=== PATIENT | male | born 1950 | race Caucasian/White ===

== ENCOUNTER → 2017-05-20 12:04 | Outpatient (CLI) | payer MEDICARE, SELFPAY ==
[2017-05-20 14:23] LABS: Color, Urine Yellow (Yellow); Glucose, Dipstick Normal (Normal); Ketone-Dipstick Negative (Negative); Leukocyte Esterase-Dipstick Negative /ul (Negative); Nitrite-Dipstick Negative (Negative); Occult Blood-Urine Negative /ul (Negative); Protein-Dipstick Negative (Negative); Specific Gravity, Urine 1.015 (1.002-1.030); Urine Bilirubin Dipstick Negative (Negative); Urine Clarity Clear (Clear); Urine Urobilinogen Normal (Normal)
[2017-05-20 14:29] LABS: Absolute Lymphocyte Count 1.81 X10^3/ul (0.83-4.51); Absolute Neutrophil Count 5.7 X10^3/uL (2.0-7.7); Basophil# 0.04 X10^3/uL; Basophil% 0.5 % (0-1); Eosinophil# 0.07 X10^3/uL; Eosinophils% 0.8 % (0-5); Hematocrit 43.5 % (40-54); Hemoglobin 14.7 g/dl (13.0-16.5); Lymphocyte # 1.81 X10^3/ul (4.0); Lymphocyte % 21.4 % (19-41); Mean Corp Hgb Conc 33.8 g/gl (32-36); Mean Corpuscular Hgb 34.5 pg (27.0-32.0); Mean Corpuscular Volume 102.1 fL (80-94); Mean Platelet Vol. 9.8 fl (6.2-12.0); Monocyte# 0.76 X10^3/uL; Neutrophil # 5.71 X10^3/uL (2.7-7.7); Neutrophil % 67.7 % (47-70); Platelet Count 254 K/mm3 (150-450); RBC Distribution Width CV 12.6 % (11.6-14.6); RBC Distribution Width SD 46.6 fl (35.1-43.9); Red Blood Count 4.26 M/mm3 (4.6-6.2); White Blood Count 8.4 K/mm3 (4.4-11.0)
[2017-05-20 14:30] LABS: POSITIVE COUNT NO; POSITIVE DIFFERENTIAL NO; POSITIVE MORPHOLOGY NO
[2017-05-20 14:35] LABS: AST(SGOT) 30 U/L (15-37); Alanine Aminotransfer ALT/SGPT 40 U/L (16-61); Albumin, Serum 3.6 g/dL (3.2-5.0); Alkaline Phosphatase 64 U/L (45-117); Anion Gap 7 (5-15); BUN 25 mg/dL (7-18); BUN/Creat Ratio 21.9 RATIO (10-20); Calcium,Total 9.6 mg/dL (8.5-10.1); Chloride 102 mmol/L (98-107); Cholesterol 151 mg/dL (200); Creatinine, Serum 1.14 mg/dL (0.70-1.30); EST Glomerular Filtration Rate 68 mL/min (>60); Est Glom Filt Rate - Afr Amer 83 mL/min (>60); Globulin 3.7 g/dL (2.2-4.2); Glucose 107 mg/dL (74-106); High Density Lipoprotein 42 mg/dL; PSA,Total - Annual Screen 0.98 ng/mL (0.00-4.00); Potassium 4.3 mmol/L (3.5-5.1); Protein, Total 7.3 g/dL (6.4-8.2); Sodium Level 139 mmol/L (136-145); Triglycerides 189 mg/dL; Very Low Density Lipoprotein 38 mg/dL (5-40)
== END ==
DX: Z00.00 Encounter for general adult medical examination without abnormal findings (principal); I10 Essential (primary) hypertension; E78.00 Pure hypercholesterolemia, unspecified; E53.8 Deficiency of other specified B group vitamins; Z12.5 Encounter for screening for malignant neoplasm of prostate
CPT/HCPCS: 36415; 80053; 80061; 81002; 84153; 85025; G0103

== ENCOUNTER → 2018-05-27 10:16 | Outpatient (CLI) | payer MEDICARE, SELFPAY ==
[2018-05-27 12:36] LABS: Absolute Lymphocyte Count 2.05 X10^3/ul (0.83-4.51); Absolute Neutrophil Count 4.1 X10^3/uL (2.0-7.7); Basophil# 0.02 X10^3/uL; Basophil% 0.3 % (0-1); Color, Urine Yellow (Yellow); Eosinophil# 0.13 X10^3/uL; Eosinophils% 1.9 % (0-5); Glucose, Dipstick Normal (Normal); Hematocrit 44.9 % (40-54); Hemoglobin 14.7 g/dl (13.0-16.5); Ketone-Dipstick Negative (Negative); Leukocyte Esterase-Dipstick Negative /ul (Negative); Lymphocyte # 2.05 X10^3/ul (4.0); Lymphocyte % 29.6 % (19-41); Mean Corp Hgb Conc 32.7 g/gl (32-36); Mean Corpuscular Hgb 32.6 pg (27.0-32.0); Mean Corpuscular Volume 99.6 fL (80-94); Mean Platelet Vol. 10.4 fl (6.2-12.0); Monocyte# 0.62 X10^3/uL; Monocyte% 8.9 % (0-10); Neutrophil # 4.09 X10^3/uL (2.7-7.7); Nitrite-Dipstick Negative (Negative); Occult Blood-Urine Negative /ul (Negative); Platelet Count 291 K/mm3 (150-450); Protein-Dipstick Negative (Negative); RBC Distribution Width CV 12.5 % (11.6-14.6); RBC Distribution Width SD 46.1 fl (35.1-43.9); Red Blood Count 4.51 M/mm3 (4.6-6.2); Specific Gravity, Urine 1.015 (1.002-1.030); Urine Bilirubin Dipstick Negative (Negative); Urine Clarity Clear (Clear); Urine Urobilinogen Normal (Normal); Urine pH 6.5 (5.0 - 8.0); White Blood Count 6.9 K/mm3 (4.4-11.0)
[2018-05-27 12:37] LABS: POSITIVE COUNT NO; POSITIVE DIFFERENTIAL NO; POSITIVE MORPHOLOGY NO
[2018-05-27 13:11] LABS: ALB/GLOB Ratio 0.9 RATIO (0.9-2.4); AST(SGOT) 21 U/L (15-37); Alanine Aminotransfer ALT/SGPT 33 U/L (16-61); Albumin, Serum 3.6 g/dL (3.2-5.0); Alkaline Phosphatase 52 U/L (45-117); Anion Gap 5 (5-15); BUN 19 mg/dL (7-18); BUN/Creat Ratio 18.1 RATIO (10-20); Calcium,Total 9.2 mg/dL (8.5-10.1); Chloride 104 mmol/L (98-107); Cholesterol 155 mg/dL (200); Creatinine, Serum 1.05 mg/dL (0.70-1.30); EST Glomerular Filtration Rate 75 mL/min (>60); Est Glom Filt Rate - Afr Amer 91 mL/min (>60); Glucose 118 mg/dL (74-106); High Density Lipoprotein 30 mg/dL; Potassium 3.9 mmol/L (3.5-5.1); Protein, Total 7.6 g/dL (6.4-8.2); Sodium Level 136 mmol/L (136-145); Triglycerides 168 mg/dL; Very Low Density Lipoprotein 34 mg/dL (5-40)
== END ==
PROVIDERS: Referring Provider Family Medicine; Visit Provider Family Medicine
DX: Z00.00 Encounter for general adult medical examination without abnormal findings (principal); Z12.5 Encounter for screening for malignant neoplasm of prostate
CPT/HCPCS: 36415; 80053; 80061; 81002; 84153; 85025; G0103

== ENCOUNTER → 2019-07-10 11:52 | Outpatient (CLI) | payer MEDICARE, SELFPAY ==
[2019-07-10 14:52] LABS: Absolute Lymphocyte Count 2.23 X10^3/uL (0.83-4.51); Absolute Neutrophil Count 3.9 X10^3/uL (2.0-7.7); Basophil# 0.03 X10^3/uL; Basophil% 0.4 % (0-1); Eosinophil# 0.08 X10^3/uL; Eosinophils% 1.2 % (0-5); Hematocrit 41.8 % (40-54); Hemoglobin 13.7 g/dL (13.0-16.5); Lymphocyte # 2.23 X10^3/ul (4.0); Lymphocyte % 32.3 % (19-41); Mean Corp Hgb Conc 32.8 g/dL (32-36); Mean Corpuscular Hgb 32.2 pg (27.0-32.0); Mean Corpuscular Volume 98.4 fL (80-94); Monocyte# 0.62 X10^3/uL; NRBC Flagged by Analyzer 0 % (0-5); Neutrophil # 3.92 X10^3/uL (2.7-7.7); Neutrophil % 56.8 % (47-70); Platelet Count 291 K/mm3 (150-450); RBC Distribution Width SD 46.5 fl (35.1-43.9); Red Blood Count 4.25 M/mm3 (4.6-6.2); White Blood Count 6.9 K/mm3 (4.4-11.0)
[2019-07-10 15:06] LABS: Hemoglobin A1c 7.1 % (4.2-6.3)
[2019-07-10 15:08] LABS: ALB/GLOB Ratio 0.9 RATIO (0.9-2.4); AST(SGOT) 20 U/L (15-37); Alanine Aminotransfer ALT/SGPT 30 U/L (16-61); Albumin, Serum 3.6 g/dL (3.2-5.0); Alkaline Phosphatase 52 U/L (45-117); Anion Gap 5 (5-15); BUN 34 mg/dL (7-18); BUN/Creat Ratio 26.4 RATIO (10-20); Calcium,Total 9.7 mg/dL (8.5-10.1); Chloride 105 mmol/L (98-107); Creatinine, Serum 1.29 mg/dL (0.70-1.30); EST Glomerular Filtration Rate 59 mL/min (>60); Est Glom Filt Rate - Afr Amer 71 mL/min (>60); Globulin 3.8 g/dL (2.2-4.2); Glucose 108 mg/dL (74-106); Potassium 4.2 mmol/L (3.5-5.1); Protein, Total 7.4 g/dL (6.4-8.2); Sodium Level 139 mmol/L (136-145)
== END ==
PROVIDERS: PCP Family Medicine; Referring Provider Family Medicine; Visit Provider Family Medicine
DX: E78.5 Hyperlipidemia, unspecified (principal); I10 Essential (primary) hypertension; R73.01 Impaired fasting glucose
CPT/HCPCS: 36415; 80053; 83036; 85025

== ENCOUNTER → 2020-01-10 10:25 | Outpatient (CLI) | payer MEDICARE, SELFPAY ==
[2020-01-10 12:12] LABS: Absolute Lymphocyte Count 2.71 X10^3/uL (0.83-4.51); Absolute Neutrophil Count 4.5 X10^3/uL (2.0-7.7); Basophil# 0.04 X10^3/uL; Basophil% 0.5 % (0-1); Eosinophil# 0.12 X10^3/uL; Eosinophils% 1.5 % (0-5); Hematocrit 42.5 % (40-54); Hemoglobin 13.7 g/dL (13.0-16.5); Lymphocyte # 2.71 X10^3/ul (4.0); Lymphocyte % 33.5 % (19-41); Mean Corp Hgb Conc 32.2 g/dL (32-36); Mean Corpuscular Hgb 32.4 pg (27.0-32.0); Mean Corpuscular Volume 100.5 fL (80-94); Mean Platelet Vol. 9.9 fl (6.2-12.0); Monocyte# 0.69 X10^3/uL; Monocyte% 8.5 % (0-10); NRBC Flagged by Analyzer 0 % (0-5); Neutrophil # 4.49 X10^3/uL (2.7-7.7); Neutrophil % 55.4 % (47-70); Platelet Count 341 K/mm3 (150-450); RBC Distribution Width SD 47.9 fl (35.1-43.9); Red Blood Count 4.23 M/mm3 (4.6-6.2); White Blood Count 8.1 K/mm3 (4.4-11.0)
[2020-01-10 12:54] LABS: ALB/GLOB Ratio 0.9 RATIO (0.9-2.4); AST(SGOT) 22 U/L (15-37); Alanine Aminotransfer ALT/SGPT 35 U/L (16-61); Albumin, Serum 3.8 g/dL (3.2-5.0); Alkaline Phosphatase 53 U/L (45-117); Anion Gap 5 (5-15); BUN 41 mg/dL (7-18); BUN/Creat Ratio 29.7 RATIO (10-20); Calcium,Total 9.4 mg/dL (8.5-10.1); Chloride 106 mmol/L (98-107); Cholesterol 131 mg/dL (200); Creatinine, Serum 1.38 mg/dL (0.70-1.30); EST Glomerular Filtration Rate 54 mL/min (>60); Est Glom Filt Rate - Afr Amer 66 mL/min (>60); Globulin 4.1 g/dL (2.2-4.2); Glucose 97 mg/dL (74-106); High Density Lipoprotein 30 mg/dL; Potassium 4.6 mmol/L (3.5-5.1); Protein, Total 7.9 g/dL (6.4-8.2); Sodium Level 139 mmol/L (136-145); Triglycerides 156 mg/dL; Very Low Density Lipoprotein 31 mg/dL (5-40)
[2020-01-10 13:14] LABS: Microalbumin,Random Urine 22.4 mg/L (NO RANGE EST.)
== END ==
PROVIDERS: PCP Family Medicine; Referring Provider Family Medicine; Visit Provider Family Medicine
DX: E11.9 Type 2 diabetes mellitus without complications (principal); I10 Essential (primary) hypertension
CPT/HCPCS: 36415; 80053; 80061; 82043; 82570; 85025

== ENCOUNTER 2020-05-09 07:41 | Outpatient (RCR) | payer MEDICARE, SELFPAY ==
[2020-05-09] MEDS: COVID-19 VACC, MRNA(PFIZER)/PF 30 MCG/0.3 ML SYRINGE IM (15:23)
[2020-05-30] MEDS: COVID-19 VACC, MRNA(PFIZER)/PF 30 MCG/0.3 ML SYRINGE IM (15:03)
== END 2020-08-06 23:59 ==
LOC: IMMUN 07:41
PROVIDERS: PCP Family Medicine; Referring Provider Family Medicine; Visit Provider Family Medicine
DX: Z23 Encounter for immunization (principal)
CPT/HCPCS: 0001A; 0002A; 91300

== ENCOUNTER → 2020-09-24 13:38 | Outpatient (CLI) | payer MEDICARE, SELFPAY ==
[2020-09-24 15:06] LABS: Absolute Lymphocyte Count 2.57 X10^3/uL (0.83-4.51); Absolute Neutrophil Count 4.2 X10^3/uL (2.0-7.7); Basophil# 0.05 X10^3/uL; Basophil% 0.6 % (0-1); Eosinophil# 0.14 X10^3/uL; Eosinophils% 1.8 % (0-5); Hematocrit 38.5 % (40-54); Hemoglobin 12.4 g/dL (13.0-16.5); Lymphocyte # 2.57 X10^3/ul (0.83-4.51); Lymphocyte % 32.4 % (19-41); Mean Corp Hgb Conc 32.2 g/dL (32-36); Mean Corpuscular Hgb 32.1 pg (27.0-32.0); Mean Corpuscular Volume 99.7 fL (80-94); Mean Platelet Vol. 9.7 fl (6.2-12.0); Monocyte# 0.94 X10^3/uL; Monocyte% 11.8 % (0-10); NRBC Flagged by Analyzer 0 % (0-5); Neutrophil # 4.17 X10^3/uL (2.7-7.7); Neutrophil % 52.5 % (47-70); Platelet Count 318 K/mm3 (150-450); RBC Distribution Width CV 12.9 % (11.6-14.6); RBC Distribution Width SD 47.3 fl (35.1-43.9); Red Blood Count 3.86 M/mm3 (4.6-6.2); White Blood Count 7.9 K/mm3 (4.4-11.0)
[2020-09-24 15:46] LABS: ALB/GLOB Ratio 0.9 RATIO (0.9-2.4); AST(SGOT) 20 U/L (15-37); Alanine Aminotransfer ALT/SGPT 28 U/L (16-61); Albumin, Serum 3.7 g/dL (3.2-5.0); Alkaline Phosphatase 46 U/L (45-117); Anion Gap 6 (5-15); BUN 74 mg/dL (7-18); BUN/Creat Ratio 28.4 RATIO (10-20); Calcium,Total 9.1 mg/dL (8.5-10.1); Chloride 104 mmol/L (98-107); Creatinine, Serum 2.61 mg/dL (0.70-1.30); EST Glomerular Filtration Rate 26 mL/min (>60); Est Glom Filt Rate - Afr Amer 31 mL/min (>60); Glucose 108 mg/dL (74-106); Protein, Total 7.7 g/dL (6.4-8.2); Sodium Level 138 mmol/L (136-145)
== END ==
PROVIDERS: PCP Family Medicine; Referring Provider Family Medicine; Visit Provider Family Medicine
DX: Z00.01 Encounter for general adult medical examination with abnormal findings (principal); Z12.5 Encounter for screening for malignant neoplasm of prostate
CPT/HCPCS: 36415; 80053; 84153; 85025; G0103

== ENCOUNTER → 2020-10-02 15:10 | Outpatient (CLI) | payer MEDICARE, SELFPAY ==
--- NOTE | 2020-10-02 15:15 | US_ITS ---
STUDY: RENAL ULTRASOUND - COMPLETE REASON FOR EXAM: Male, 70 years old. Change in renal function. Decreased renal function. TECHNIQUE: Ultrasound evaluation of the kidneys was performed with real-time and static gordon-scale imaging. COMPARISON: None. FINDINGS: RIGHT KIDNEY: Normal location of the right kidney, which is normal in size. The right kidney measures 11.3 cm. There is a normal cortex of the right kidney. The renal cortex measures 1.3 cm. There is no right renal mass or cyst. There are no right renal calculi. There is no right hydronephrosis. DISTAL RIGHT URETER: There is non-visualization of the distal right ureter. There is no demonstrated right ureterovesical junction calculus. There is a visualized right ureteral jet. LEFT KIDNEY: Normal location of the left kidney, which is enlarged in size. The left kidney measures 13.2 cm. There is a normal cortex of the left kidney. The renal cortex measures 1.5 cm. There is no left renal mass or cyst. There are no left renal calculi. There is no left hydronephrosis. DISTAL LEFT URETER: There is non-visualization of the distal left ureter. There is no demonstrated left ureterovesical junction calculus. There is a visualized left ureteral jet. BLADDER: The distended urinary bladder has a volume of 118 ml. There is a normal wall thickness of the distended urinary bladder. There is no demonstrated mass within the urinary bladder. There are no demonstrated bladder calculi. US/Kidney and Bladder IMPRESSION: Normal ultrasound of the kidneys and urinary bladder. Electronically Signed: Wesley Pool DO at 16:09 EDT Tel [phone], Service support ,
[2020-10-02 17:06] LABS: Protein, Urine (Random) 9.1 mg/dL (<11.9); Protein:Creat Ratio 77 mg/g CRE (0-200)
== END ==
PROVIDERS: PCP Family Medicine; Referring Provider Family Medicine; Visit Provider Family Medicine
DX: N18.30 Chronic kidney disease, stage 3 unspecified (principal)
CPT/HCPCS: 76770; 82570; 84156

== ENCOUNTER → 2020-10-22 14:34 | Outpatient (CLI) | payer MEDICARE, SELFPAY ==
[2020-10-22 17:39] LABS: Absolute Lymphocyte Count 2.18 X10^3/uL (0.83-4.51); Absolute Neutrophil Count 3.7 X10^3/uL (2.0-7.7); Basophil# 0.03 X10^3/uL; Basophil% 0.4 % (0-1); Eosinophil# 0.09 X10^3/uL; Eosinophils% 1.3 % (0-5); Hematocrit 38.8 % (40-54); Hemoglobin 12.1 g/dL (13.0-16.5); Lymphocyte # 2.18 X10^3/ul (0.83-4.51); Lymphocyte % 32.3 % (19-41); Mean Corp Hgb Conc 31.2 g/dL (32-36); Mean Corpuscular Hgb 31.5 pg (27.0-32.0); Mean Platelet Vol. 10.6 fl (6.2-12.0); Monocyte# 0.72 X10^3/uL; Monocyte% 10.7 % (0-10); NRBC Flagged by Analyzer 0 % (0-5); Neutrophil # 3.68 X10^3/uL (2.7-7.7); Neutrophil % 54.7 % (47-70); Platelet Count 305 K/mm3 (150-450); RBC Distribution Width CV 13.6 % (11.6-14.6); RBC Distribution Width SD 50.3 fl (35.1-43.9); Red Blood Count 3.84 M/mm3 (4.6-6.2); White Blood Count 6.7 K/mm3 (4.4-11.0)
[2020-10-22 18:10] LABS: Vitamin D,25 Hydroxy 25.8 ng/mL
[2020-10-22 18:13] LABS: AST(SGOT) 22 U/L (15-37); Alanine Aminotransfer ALT/SGPT 36 U/L (16-61); Albumin, Serum 3.6 g/dL (3.2-5.0); Alkaline Phosphatase 48 U/L (45-117); Anion Gap 4 (5-15); BUN 31 mg/dL (7-18); BUN/Creat Ratio 23.7 RATIO (10-20); Calcium,Total 9.4 mg/dL (8.5-10.1); Chloride 107 mmol/L (98-107); Creatinine, Serum 1.31 mg/dL (0.70-1.30); EST Glomerular Filtration Rate 58 mL/min (>60); Est Glom Filt Rate - Afr Amer 70 mL/min (>60); Globulin 3.7 g/dL (2.2-4.2); Glucose 90 mg/dL (74-106); Potassium 4.4 mmol/L (3.5-5.1); Protein, Total 7.3 g/dL (6.4-8.2); Sodium Level 138 mmol/L (136-145)
[2020-10-23 09:29] LABS: PTHIN 8.5 pg/mL (18.4-80.1)
[2020-10-23 14:46] LABS: Vitamin B12 1115 pg/mL (211-911)
== END ==
PROVIDERS: PCP Family Medicine; Referring Provider Family Medicine; Visit Provider Family Medicine
DX: N18.30 Chronic kidney disease, stage 3 unspecified (principal); D64.9 Anemia, unspecified
CPT/HCPCS: 36415; 80053; 82306; 82607; 83970; 85025

== ENCOUNTER 2020-11-25 12:25 | Emergency (ER) | payer MEDICARE, SELFPAY ==
[2020-11-25 12:26] VITALS: BP 206/78; PULSE 76; RESP 16; TEMP 36.1; O2SAT 96; BMI 31.6
[2020-11-25 14:33] VITALS: BP 203/83; PULSE 62; RESP 20; O2SAT 96
--- NOTE | 2020-11-25 14:58 | CT_ITS ---
STUDY: CT BRAIN WITHOUT CONTRAST REASON FOR EXAM: Male, 70 years old. Headache. Hypertension. RADIATION DOSAGE (If Supplied By Facility): CTDIvol = ( 44.99 ) mGy, DLP = ( 745.49 ) mGycm TECHNIQUE: Transaxial CT imaging of the brain was performed without administration of intravenous contrast material. Individualized dose optimization techniques were used for this CT. COMPARISON: No relevant priors. FINDINGS: Normal soft tissue structures. Normal calvarium. Normal size ventricles and extra-axial spaces for the patient''s age. There is a 2 cm x 2 cm rounded hypodensity in the posterior left occipital lobe. Mild degree of surrounding edema. A repeat examination following IV contrast is recommended. Normal basal ganglia and thalami. Normal brainstem. Normal cerebellum. There is no intracranial hemorrhage. There are no findings of an acute ischemic infarction. Normal visualized paranasal sinuses. CT/Brain/Head without Contrast IMPRESSION: 2 cm x 2 cm rounded hypodensity in the posterior left occipital lobe as described. A repeat examination following IV contrast or MRI is recommended for further evaluation. This extends to the cortical surface. Electronically Signed: Pelon Ramon MD at 15:31 EDT , Service support ,
--- NOTE | 2020-11-25 14:59 | EKG12_ITS ---
Test Reason : HTN Blood Pressure : / mmHG Vent. Rate : 058 BPM Atrial Rate : 058 BPM P-R Int : 172 ms QRS Dur : 086 ms QT Int : 448 ms P-R-T Axes : 002 014 050 degrees QTc Int : 439 ms Sinus bradycardia Manjeet- Septal infarct , age undetermined Abnormal ECG Confirmed by TACO FLORES, SPARKLE ([id number]), book editor LISA ROBLEDO ([id number]) on 11/27/2020 11:24:58 AM Referred By: GRACE Confirmed By:SPARKLE ESPAÑA MD
--- NOTE | 2020-11-25 14:59 | EDS_ITS ---
HPI History of Present Illness Chief Complaint: Hypertension Narrative Narrative: 60-year-old male presenting with elevated blood pressure. Patient states that he was on losartan hydrochlorothiazide previously about a month ago. He was seen for a routine appointment at his doctor's office and he states that he was told that his white blood cell count was low. He was sent to hospital for an ultrasound of his kidneys which was normal. His medication was changed to metoprolol succinate 25 mg orally daily. Patient is also on amlodipine 5 mg p.o. daily. He notes that he has been having a slight headache without visual disturbance. He states he sometimes feels a little dizzy. He has not had nausea or vomiting. Patient states that he also has lower extremity edema in his feet bilaterally. He is short of breath with exertion and can walk only short distances. He does not have any chest pain. He denies any cardiac history. He denies fever, chills, cough. [facility] Medical History Hyperlipemia Hypertension Home Medications amlodipine 5 mg PO DAILY 11/25/20 [History Last Taken Unknown] amlodipine [Norvasc] 10 mg PO DAILY #30 tab 11/25/20 [Rx Last Taken Unknown] atorvastatin 20 mg PO DAILY 11/25/20 [History Last Taken Unknown] cyanocobalamin (vitamin B-12) [Vitamin B-12] 1,000 mcg PO DAILY 11/25/20 [History Last Taken Unknown] fenofibrate micronized 134 mg PO DAILY 11/25/20 [History Last Taken Unknown] losartan-hydrochlorothiazide 1 tab PO DAILY #30 tab 11/25/20 [Rx Last Taken U nknown] metoprolol succinate 25 mg PO DAILY 11/25/20 [History Last Taken Unknown] omega 4-hdq-eej-fish oil [Fish Oil] 1 cap PO DAILY 11/25/20 [History Last Taken Unknown] tadalafil 5 mg PO PRN PRN 11/25/20 [History Last Taken Unknown] Allergy/AdvReac Type Severity Reaction Status Date / Time acetaminophen [From Percocet] AdvReac Upset Verified 11/25/20 12:29 Stomach oxycodone [From Percocet] AdvReac Upset Verified 11/25/20 12:29 Stomach Social History Smoking Status: Current every day smoker tobacco type: cigarettes ROS ROS ED Constitutional Constitutional ED: Denies chills, fever(s) or sweats Eyes Eyes: Denies blurry vision or change in vision ENT ENT ED: Denies ear pain or sore throat Cardiovascular Cardiovascular: Denies chest pain, palpitations or racing heartbeat Respiratory/Chest Respiratory/Chest: Reports dyspnea on exertion; Denies dyspnea or sputum Gastrointestinal Gastrointestinal: Denies abdominal pain, constipation, diarrhea, nausea or vomiting Genitourinary Genitourinary ED: Denies dysuria, hematuria or urinary frequency Musculoskeletal Musculoskeletal: Denies arthralgias, myalgias or neck pain Integumentary Denies abscess, Abrasions or rash Neurologic Neurologic: Reports headache(s); Denies lack of coordination, loss of vision, paresthesias or weakness Psychiatric Psychiatric: Denies anxiety, depression, suicidal ideation or suicidal thoughts Endocrine Endocrinology: Denies polydipsia or polyuria EXAM Physical Exam Const Vital Signs: 11/25/20 12:26 11/25/20 14:33 11/25/20 15:02 Temperature 97.0 F L Temperature Source Temporal Pulse Rate 76 62 Respiratory Rate 16 20 H Respiratory Effort Normal Non-Labored Respiratory Pattern Normal Blood Pressure 206/78 H 203/83 H Blood Pressure Mean 120 123 Pulse Ox 96 96 96 Oxygen Delivery Method Room Air Room Air Room Air 11/25/20 15:36 11/25/20 17:32 Temperature Temperature Source Pulse Rate 57 L 54 L Respiratory Rate 24 H 18 Respiratory Effort Respiratory Pattern Blood Pressure 205/77 H 200/75 H Blood Pressure Mean 119 Pulse Ox 95 97 Oxygen Delivery Method Room Air Positive well nourished, alert, oriented x3 and no apparent distress General Appearance ED: Negative for pallor HEENT Reports normocephalic, head/scalp atraumatic and moist mucous membranes Eyes PERRL and EOMs intact bilaterally Chest Wall inspection of chest normal and palpation of chest normal Resp normal respiratory effort and clear to auscultation bilaterally Auscultation: Negative for rales, rhonchi or wheezes Cardio regular rate and regular rhythm Narrative: Deferred Extremity normal to inspection General Extremety ED: Yes edema; Negative for tenderness General Extremity: edema Neuro oriented x3 and CN's II-XII intact bilaterally Sensorium / Orientation: alert Motor Exam: strength 5/5 throughout Psych mental status grossly normal Appearance: grossly normal Attitude: No agitated Skin no rashes or lesions noted and no wounds General Skin Exam: Negative for jaundice or pallor MDM MDM MDM Narrative Medical decision making narrative: Patient presenting with hypertension. He states he was taken off his losartan HCTZ about a month ago. He is on amlodipine 5 mg, metoprolol 25 mg p.o. daily. He states his blood pressure has been elevated. Patient has a mild headache as well as some shortness of breath with exertion but he is not having significant shortness of breath. He is not orthopneic. He does not have any chest pain. Patient has no history of heart failure. He is expressing that his lower extremities are swollen. This is present on exam in the feet. EKG on my interpretation shows a sinus rhythm with a ventricular rate of 58 bpm without sign of ischemic change. Chest x-ray on my interpretation shows no acute cardiopulmonary process and the radiologist does agree although he notes there is some atelectasis changes. Because the patient had a headache I did obtain a head CT which shows a 2 x 2 left occipital lobe hypodensity of uncertain etiology. It was recommended that he have a CT of the head with IV contrast which was performed and does not show any significant change however the radiologist does say there is a stable amount of edema around this area as well as no midline shift and no suspicious findings. Patient CBC and BMP are unremarkable. Troponin is 38. BNP is elevated 148.9. I discussed the patient with Dr. Addie Mejia as I feel the patient's lesion is not emergent and the patient can likely be followed up outpatient for MRI. She did agree. She did state that he was supposed to be still on his losartan but without the HCTZ component. I did discuss the case with Dr. Ricci as the patient does not have anirudh CHF on his chest x-ray and is not requiring oxygen is not having chest pain. Dr. Ricci recommended the patient stay on metoprolol 25 mg p.o. daily as well as losartan 100 mg with 25 mg of HCTZ and increase his amlodipine to 10 mg. A prescription for this was provided. He did not feel that the patient needed emergent follow-up with cardiology but did state that if his primary care doctor cannot get his blood pressure under control he be happy to see him in referral. All findings and changes were discussed with the patient at length. They are amenable to this plan. Her primary care physician will see them in the next couple of days. Impression: 1. Hypertension established [id number] 2. 2 x 2 centimeter left occipital lobe hypodensity Lab Data Attestation: I reviewed the patient's lab results. Labs: Laboratory Results - last 24 hr 11/25/20 11/25/20 11/25/20 14:20 14:20 14:20 WBC 6.9 RBC 4.20 L Hgb 13.7 Hct 42.2 MCV 100.5 H MCH 32.6 H MCHC 32.5 RDW Std Deviation 49.0 H RDW Coeff of Darryl 13.2 Plt Count 272 MPV 10.1 Immature Gran % (Auto) 0.300 Neut % (Auto) 56.7 Lymph % (Auto) 31.8 [place] % (Auto) 9.2 Eos % (Auto) 1.4 Baso % (Auto) 0.6 Absolute Neuts (auto) 3.9 Absolute Lymphs (auto) 2.21 Nucleated RBC % 0 Sodium 141 Potassium 4.4 Chloride 107 Carbon Dioxide 25.0 Anion Gap 9 BUN 27 H Creatinine 1.01 Estim Creat Clear Calc 78.01 Est GFR (MDRD) Af Amer 94 Est GFR (MDRD) Non-Af 78 BUN/Creatinine Ratio 26.7 H Glucose 102 Calcium 9.5 Troponin I High Sens 38 B-Natriuretic Peptide 148.9 H Radiography Diagnostic Testing: Radiology Impression Brain CT 11/25/20 14:58 IMPRESSION: 2 cm x 2 cm rounded hypodensity in the posterior left occipital lobe as described. A repeat examination following IV contrast or MRI is recommended for further evaluation. This extends to the cortical surface. Electronically Signed: Pelon Ramon MD at 15:31 EDT , Service support , Chest X-Ray 11/25/20 15:00 IMPRESSION: Hyperinflation. Mild degree of increased markings at the lung bases suggestive of either atelectasis and/or scarring. Electronically Signed: Pelon Ramon MD at 15:16 EDT , Service support , Brain CT 11/25/20 16:24 IMPRESSION: No significant interval change in the appearance of the previously described 2 x 2 cm rounded hypodensity in the posterior left occipital lobe. There is no suspicious enhancement. There is a stable amount of associated edema. No midline shift or mass effect No suspicious enhancing lesion Age consistent changes elsewhere, no acute findings Electronically Signed: Kory Ocasio MD at 17:01 EDT , Service support , Discharge Plan Triage Chief Complaint: Hypertension ED Provider: Mateo Costa Dx/Rx/DC Orders Instructions: ED Hypertension, Established Prescriptions: New amlodipine [Norvasc] 10 mg tablet 10 mg PO DAILY Qty: 30 RF: 0 losartan-hydrochlorothiazide 100-25 mg tablet 1 tab PO DAILY Qty: 30 RF: 0 No Action atorvastatin 20 mg tablet 20 mg PO DAILY RF: 0 cyanocobalamin (vitamin B-12) [Vitamin B-12] 1,000 mcg Tablet 1,000 mcg PO DAILY RF: 0 amlodipine 5 mg tablet 5 mg PO DAILY RF: 0 fenofibrate micronized 134 mg capsule 134 mg PO DAILY RF: 0 metoprolol succinate 25 mg tablet extended release 24 hr 25 mg PO DAILY RF: 0 tadalafil 5 mg tablet 5 mg PO PRN PRN (Reason: intercourse) RF: 0 omega 2-tti-iij-fish oil [Fish Oil] 1,200 (144-216) mg Capsule 1 cap PO DAILY RF: 0 Primary Care Provider: Baibta Arndt Referrals: Babita Arndt MD [Primary Care Provider] - Activity Restrictions/Additional Instructions: Continue metoprolol 25 mg p.o. daily. We will add losartan 100 mg and HCTZ 25 mg. We will change her amlodipine to [address] Rcici recommended that you follow-up with your primary care provider and if the blood pressure cannot be controlled he could see you in follow-up.You also have an abnormal finding on your head CT which needs nonemergent follow-up with Dr. Arndt. I have spoken to her. She will see you this week. Please call the office for an appointment. Disposition Disposition: Home, Self Care Discharge Date/Time: 11/25/20 17:37
--- NOTE | 2020-11-25 15:00 | RAD_ITS ---
STUDY: X-RAY CHEST REASON FOR EXAM: Male, 70 years old. Chest pain TECHNIQUE: Single AP portable view of the chest. COMPARISON: None. FINDINGS: EKG electrodes are seen. Hyperinflation. Mild degree of increased linear markings at the lung bases suggestive of either linear atelectasis and/or scarring. There is no demonstrated pleural abnormality. Normal size heart. Normal mediastinum and sheri. Normal visualized pulmonary arteries. There is atherosclerotic calcification of the aortic arch with tortuosity. Normal visualized thoracic spine. Normal visualized ribs, clavicles, and shoulders. There is no demonstrated abnormality of the visualized soft tissue structures of the upper abdomen. RAD/Chest 1 View (Portable) IMPRESSION: Hyperinflation. Mild degree of increased markings at the lung bases suggestive of either atelectasis and/or scarring. Electronically Signed: Pelon Ramon MD at 15:16 EDT , Service support ,
[2020-11-25 15:02] VITALS: O2SAT 96
[2020-11-25 15:10] LABS: Absolute Lymphocyte Count 2.21 X10^3/uL (0.83-4.51); Absolute Neutrophil Count 3.9 X10^3/uL (2.0-7.7); Basophil# 0.04 X10^3/uL; Basophil% 0.6 % (0-1); Eosinophils% 1.4 % (0-5); Hematocrit 42.2 % (40-54); Hemoglobin 13.7 g/dL (13.0-16.5); Lymphocyte # 2.21 X10^3/ul (0.83-4.51); Lymphocyte % 31.8 % (19-41); Mean Corp Hgb Conc 32.5 g/dL (32-36); Mean Corpuscular Hgb 32.6 pg (27.0-32.0); Mean Corpuscular Volume 100.5 fL (80-94); Mean Platelet Vol. 10.1 fl (6.2-12.0); Monocyte# 0.64 X10^3/uL; Monocyte% 9.2 % (0-10); NRBC Flagged by Analyzer 0 % (0-5); Neutrophil # 3.93 X10^3/uL (2.7-7.7); Neutrophil % 56.7 % (47-70); Platelet Count 272 K/mm3 (150-450); RBC Distribution Width CV 13.2 % (11.6-14.6); White Blood Count 6.9 K/mm3 (4.4-11.0)
[2020-11-25 15:28] LABS: Anion Gap 9 (5-15); BUN 27 mg/dL (7-18); BUN/Creat Ratio 26.7 RATIO (10-20); Calcium,Total 9.5 mg/dL (8.5-10.1); Chloride 107 mmol/L (98-107); Creatinine, Serum 1.01 mg/dL (0.70-1.30); EST Glomerular Filtration Rate 78 mL/min (>60); Est Glom Filt Rate - Afr Amer 94 mL/min (>60); Estimated Creatinine Clearance 78.01 ml/min; Glucose 102 mg/dL (74-106); Potassium 4.4 mmol/L (3.5-5.1); Sodium Level 141 mmol/L (136-145); Troponin-I HS 38 pg/mL (3.0-78.0)
[2020-11-25 15:29] LABS: BNP,B-Type NATRIURETIC PEPTIDE 148.9 pg/mL (0-100)
[2020-11-25 15:36] VITALS: BP 205/77; PULSE 57; RESP 24; O2SAT 95
[2020-11-25] MEDS: hydrALAZINE 20 MG/ML Vial 5 MG IV ×2 (15:51→17:30)
--- NOTE | 2020-11-25 16:24 | CT_ITS ---
STUDY: CT BRAIN WITH CONTRAST REASON FOR EXAM: Male, 70 years old. Mental status change RADIATION DOSAGE (If Supplied By Facility): CTDIvol = ( 44.99 ) mGy, DLP = ( 1592.22 ) mGycm TECHNIQUE: Transaxial CT imaging of the brain was performed post contrast administration. The examination was performed with intravenous administration of IV 50mL Isovue-370. Individualized dose optimization techniques were used for this CT. COMPARISON: None. FINDINGS: Normal soft tissue structures. Normal calvarium. The previously described 2 x 2 cm rounded hypodensity in the posterior left occipital lobe with minimal amount of associated edema does not show abnormal enhancement after contrast administration. It remains essentially unchanged in appearance from the previous noncontrasted head CT. Normal size ventricles and extra-axial spaces for the patient''s age. Normal white matter tracts of the cerebral hemispheres. Normal basal ganglia and thalami. Normal brainstem. Normal cerebellum. There is no intracranial hemorrhage. There are no findings of an acute ischemic infarction. No suspicious enhancing lesion. Normal visualized paranasal sinuses. CT/Brain/Head WITH Contrast IMPRESSION: No significant interval change in the appearance of the previously described 2 x 2 cm rounded hypodensity in the posterior left occipital lobe. There is no suspicious enhancement. There is a stable amount of associated edema. No midline shift or mass effect No suspicious enhancing lesion Age consistent changes elsewhere, no acute findings Electronically Signed: Kory Ocasio MD at 17:01 EDT , Service support ,
[2020-11-25 17:32] VITALS: BP 200/75; PULSE 54; RESP 18; O2SAT 97
== END 2020-11-25 17:37 | disposition home or self-care (01) ==
PROVIDERS: Emergency Provider Student in an Organized Health Care Education/Training Program; PCP Family Medicine
DX: I10 Essential (primary) hypertension (principal); F17.210 Nicotine dependence, cigarettes, uncomplicated; E78.5 Hyperlipidemia, unspecified; Z79.899 Other long term (current) drug therapy; R06.02 Shortness of breath
CPT/HCPCS: 70450; 70460; 71045; 80048; 83880; 84484; 85025; 93005; 96374; 96376; 99284; J7030; Q9967; A4216

== ENCOUNTER → 2020-12-16 13:49 | Outpatient (CLI) | payer MEDICARE, SELFPAY ==
--- NOTE | 2020-12-16 13:50 | ECHOD_ITS ---
Reason For Study: HTN Procedure This was a 2D Doppler, Color Flow transthoracic echocardiogram. Exam performed in department. Left Ventricle Normal LV size. Left ventricular systolic function is normal. The estimated ejection fraction is 60 %. Stage 1 diastolic dysfunction. No regional wall motion abnormalities noted. Right Ventricle Normal RV size. Normal systolic function. Atria Normal left atrium. Normal right atrium. Mitral Valve Normal mitral valve. Tricuspid Valve Normal tricuspid valve. Mild (1+) tricuspid valve insufficiency. Pulmonary artery systolic pressure is 38 mmHg. Aortic Valve Trisinus/trileaflet aortic valve. Mild focal aortic valve calcification. Pulmonic Valve Normal pulmonic valve. Great Vessels Normal aortic root. The pulmonary artery is normal size. Normal inferior vena cava. Pericardium/Pleural No pericardial effusion. MMode/2D Measurements & Calculations LVIDd: 5.3 cm IVSd: 1.1 cm LVOT diam: 2.2 cm LVIDs: 3.7 cm LVPWd: 1.1 cm LVOT area: 3.8 cm2 RVDd: 3.4 cm FS: 29.3 % Ao root diam: 4.0 cm LAV(MOD-bp): 49.8 ml Aortic Valve Planimetry: 2.9 cm2 LAV(MOD-bp) Indexed: 21.5 ml/m2 LAV(MOD-sp2): 49.9 ml LAV(MOD-sp4): 46.7 ml LA dimension(2D): 3.6 cm LA A4 area: 18.9 cm2 RA A4 area: 14.5 cm2 Doppler Measurements & Calculations MV E max scott: 81.2 cm/sec Lat Peak E' Scott: 9.2 cm/sec Med Peak E' Scott: 4.9 cm/sec MV A max scott: 108.8 cm/sec E/E' lat: 8.8 E/E' med: 16.6 MV E/A: 0.75 MV V2 max: 105.7 cm/sec Ao V2 max: 175.0 cm/sec LV V1 max: 99.8 cm/sec MV max P.5 mmHg Ao max P.3 mmHg LV V1 max P.0 mmHg MV V2 mean: 71.6 cm/sec YAQUELIN(V,D): 2.2 cm2 MV mean P.1 mmHg MV V2 VTI: 31.1 cm PA V2 max: 108.0 cm/sec TR max scott: 289.0 cm/sec MV P1/2t-pr_phl: 160.4 msec PA V2 mean: 66.0 cm/sec TR max P.4 mmHg PA V2 VTI: 30.5 cm ECHO/Echo Complete Interpretation Summary Normal LV size. Left ventricular systolic function is normal. The estimated ejection fraction is 60 %. Stage 1 diastolic dysfunction. Pulmonary artery systolic pressure is 38 mmHg. Ordering Physician: Babita Arndt Referring Physician: Babita Arndt Performed By: Kailee Correa, CHAZ, RVT
== END ==
PROVIDERS: PCP Family Medicine; Referring Provider Family Medicine; Visit Provider Family Medicine
DX: R06.00 Dyspnea, unspecified (principal); I10 Essential (primary) hypertension; E11.9 Type 2 diabetes mellitus without complications; R90.89 Other abnormal findings on diagnostic imaging of central nervous system
CPT/HCPCS: 93306

== ENCOUNTER → 2020-12-23 16:02 | Outpatient (CLI) | payer MEDICARE, SELFPAY ==
--- NOTE | 2020-12-23 16:37 | MRI_ITS ---
STUDY: MRI BRAIN WITH AND WITHOUT CONTRAST REASON FOR EXAM: Male, 70 years old. HYPODENSE LESION IN OCCIPITAL AREA ON CT TECHNIQUE: Standardized multiplanar fat and water weighted pulse sequences were obtained. IV 23cc dotarem was administered for the contrast portion of the examination. COMPARISON: 11/25/2020. FINDINGS: Normal size of the ventricles and extra-axial spaces for the patient''s age. There are multiple white matter hyperintensities, distributed throughout the deep white matter tracts of the cerebral hemispheres, consistent with mild chronic white matter ischemic changes. There is no abnormality to correspond with the left occipital hypodensity seen on the prior CT. Normal bilateral basal ganglia. Normal thalami. There is no extra-axial fluid accumulation. Normal flow voids within the major intracranial circulation suggesting patency by spin echo criteria. Normal venous enhancement. There is no enhancing intra-axial or extra-axial abnormality. Normal sella turcica, pituitary gland, infundibular stalk, optic chiasm and hypothalamus. Normal tectal plate and pineal gland. Postsurgical changes of the orbits. Normal midbrain, tony and medulla. Normal cerebellum. Normal basal cisterns. MRI/Brain W/WO Contrast IMPRESSION: Resolution of left occipital abnormality. 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 No evidence for acute infarct at this time. No enhancing lesions following contrast administration Electronically Signed: Sean Al MD at 16:15 EDT , Service support ,
== END ==
PROVIDERS: PCP Family Medicine; Visit Provider Family Medicine
DX: R90.89 Other abnormal findings on diagnostic imaging of central nervous system (principal)
CPT/HCPCS: 70553; A9575

== ENCOUNTER → 2021-08-08 | Outpatient (CLI) | payer MEDICARE, SELFPAY ==
[2021-08-08 10:08] LABS: Absolute Lymphocyte Count 2.34 X10^3/uL (0.83-4.51); Absolute Neutrophil Count 4.2 X10^3/uL (2.0-7.7); Basophil# 0.02 X10^3/uL; Basophil% 0.3 % (0-1); Eosinophil# 0.15 X10^3/uL; Hematocrit 45.6 % (40-54); Hemoglobin 14.8 g/dL (13.0-16.5); Lymphocyte # 2.34 X10^3/ul (0.83-4.51); Lymphocyte % 31.2 % (19-41); Mean Corp Hgb Conc 32.5 g/dL (32-36); Mean Corpuscular Hgb 32.5 pg (27.0-32.0); Mean Platelet Vol. 10.3 fl (6.2-12.0); Monocyte% 9.3 % (0-10); NRBC Flagged by Analyzer 0 % (0-5); Neutrophil # 4.22 X10^3/uL (2.7-7.7); Neutrophil % 56.4 % (47-70); Platelet Count 284 K/mm3 (150-450); RBC Distribution Width CV 12.8 % (11.6-14.6); RBC Distribution Width SD 47.2 fl (35.1-43.9); Red Blood Count 4.56 M/mm3 (4.6-6.2); White Blood Count 7.5 K/mm3 (4.4-11.0)
[2021-08-08 10:22] LABS: Protein, Urine (Random) 10.9 mg/dL (<11.9); Protein:Creat Ratio 91 mg/g CRE (0-200)
[2021-08-08 10:34] LABS: AST(SGOT) 20 U/L (15-37); Alanine Aminotransfer ALT/SGPT 37 U/L (16-61); Albumin, Serum 3.8 g/dL (3.2-5.0); Alkaline Phosphatase 51 U/L (45-117); Anion Gap 2 (5-15); BUN 36 mg/dL (7-18); BUN/Creat Ratio 28.1 RATIO (10-20); Calcium,Total 9.9 mg/dL (8.5-10.1); Chloride 105 mmol/L (98-107); Cholesterol 149 mg/dL (200); Creatinine, Serum 1.28 mg/dL (0.70-1.30); EST Glomerular Filtration Rate 59 mL/min (>60); Est Glom Filt Rate - Afr Amer 71 mL/min (>60); Globulin 3.8 g/dL (2.2-4.2); Glucose 116 mg/dL (74-106); High Density Lipoprotein 29 mg/dL; Magnesium 1.8 mg/dL (1.6-2.6); Potassium 4.6 mmol/L (3.5-5.1); Protein, Total 7.6 g/dL (6.4-8.2); Sodium Level 137 mmol/L (136-145); Triglycerides 141 mg/dL; Very Low Density Lipoprotein 28 mg/dL (5-40)
[2021-08-08 10:49] LABS: PTHIN 7.3 pg/mL (18.4-80.1)
== END | disposition home or self-care (01) ==
LOC: MTLAB 08:00
PROVIDERS: PCP Family Medicine; Referring Provider Family Medicine; Visit Provider Family Medicine
DX: Z00.00 Encounter for general adult medical examination without abnormal findings (principal); E11.22 Type 2 diabetes mellitus with diabetic chronic kidney disease; N18.30 Chronic kidney disease, stage 3 unspecified; I12.9 Hypertensive chronic kidney disease with stage 1 through stage 4 chronic kidney disease, or unspecified chronic kidney disease; E78.5 Hyperlipidemia, unspecified
CPT/HCPCS: 36415; 80053; 80061; 82570; 83735; 83970; 84156; 85025

== ENCOUNTER 2022-07-15 08:38 | Outpatient (CLI) | payer MEDICARE, SELFPAY ==
--- NOTE | 2022-07-15 08:46 | RAD_ITS ---
INDICATION: LATERAL PAIN EXAMINATION/TECHNIQUE: X-RAY - RIGHT XR Ankle Min 3 Views 3 VIEWS COMPARISON: FINDINGS: SOFT TISSUES: Moderate soft tissue swelling adjacent to lateral malleolus. No radiopaque foreign body. BONES/JOINTS: Moderate distal Achilles calcific tendinopathy. Mild plantar calcaneal spurring. No acute fracture or subluxation.. Normal alignment. Preservation of the joint space.. No sclerotic or destructive changes observed. RAD/Ankle min 3 Views IMPRESSION: Soft tissue swelling adjacent to lateral malleolus. Calcific tendinopathy distal Achilles. Mild plantar calcaneal spurring. Electronically Signed: Nicolás Styles MD, FAUSTINO at 21:13 EDT ,
[2022-07-15 10:33] LABS: Absolute Lymphocyte Count 2.32 X10^3/uL (0.83-4.51); Absolute Neutrophil Count 4.6 X10^3/uL (2.0-7.7); Basophil# 0.05 X10^3/uL; Basophil% 0.6 % (0-1); Eosinophil# 0.24 X10^3/uL; Hematocrit 43.2 % (40-54); Hemoglobin 13.7 g/dL (13.0-16.5); Lymphocyte # 2.32 X10^3/ul (0.83-4.51); Lymphocyte % 28.9 % (19-41); Mean Corp Hgb Conc 31.7 g/dL (32-36); Mean Corpuscular Hgb 32.4 pg (27.0-32.0); Mean Corpuscular Volume 102.1 fL (80-94); Monocyte# 0.75 X10^3/uL; Monocyte% 9.4 % (0-10); NRBC Flagged by Analyzer 0 % (0-5); Neutrophil # 4.59 X10^3/uL (2.7-7.7); Neutrophil % 57.2 % (47-70); Platelet Count 312 K/mm3 (150-450); RBC Distribution Width CV 13.2 % (11.6-14.6); Red Blood Count 4.23 M/mm3 (4.6-6.2)
[2022-07-15 10:52] LABS: Protein, Urine (Random) 9.5 mg/dL (<11.9); Protein:Creat Ratio 74 mg/g CRE (0-200)
[2022-07-15 11:07] LABS: ALB/GLOB Ratio 0.8 RATIO (0.9-2.4); AST(SGOT) 27 U/L (15-37); Alanine Aminotransfer ALT/SGPT 25 U/L (16-61); Albumin, Serum 3.6 g/dL (3.2-5.0); Alkaline Phosphatase 43 U/L (45-117); Anion Gap 8 (5-15); BUN 58 mg/dL (7-18); BUN/Creat Ratio 32.6 RATIO (10-20); Calcium,Total 9.9 mg/dL (8.5-10.1); Chloride 110 mmol/L (98-107); Cholesterol 148 mg/dL (200); Creatinine, Serum 1.78 mg/dL (0.70-1.30); EST Glomerular Filtration Rate 40 mL/min (>60); Est Glom Filt Rate - Afr Amer 49 mL/min (>60); Globulin 4.3 g/dL (2.2-4.2); Glucose 110 mg/dL (74-106); High Density Lipoprotein 29 mg/dL; PSA,Total- Diagnostic 1.68 ng/mL (0.0-4.0); Potassium 4.6 mmol/L (3.5-5.1); Protein, Total 7.9 g/dL (6.4-8.2); Sodium Level 139 mmol/L (136-145); Triglycerides 168 mg/dL; Very Low Density Lipoprotein 34 mg/dL (5-40)
== END 2022-07-15 23:59 | disposition home or self-care (01) ==
LOC: MTLAB 08:39
PROVIDERS: PCP Family Medicine; Referring Provider Family Medicine; Visit Provider Family Medicine
DX: Z00.00 Encounter for general adult medical examination without abnormal findings (principal); E11.22 Type 2 diabetes mellitus with diabetic chronic kidney disease; N18.30 Chronic kidney disease, stage 3 unspecified; I12.9 Hypertensive chronic kidney disease with stage 1 through stage 4 chronic kidney disease, or unspecified chronic kidney disease; E78.5 Hyperlipidemia, unspecified; M25.571 Pain in right ankle and joints of right foot
CPT/HCPCS: 36415; 73610; 80053; 80061; 82570; 84153; 84156; 85025

== ENCOUNTER → 2023-08-05 | Outpatient (CLI) | payer MEDICARE, SELFPAY ==
[2023-08-05 10:51] LABS: Absolute Lymphocyte Count 2.25 X10^3/uL (0.83-4.51); Absolute Neutrophil Count 4.4 X10^3/uL (2.0-7.7); Basophil# 0.05 X10^3/uL; Basophil% 0.6 % (0-1); Eosinophil# 0.37 X10^3/uL; Eosinophils% 4.7 % (0-5); Hematocrit 43.8 % (40-54); Hemoglobin 13.7 g/dL (13.0-16.5); Lymphocyte # 2.25 X10^3/ul (0.83-4.51); Lymphocyte % 28.4 % (19-41); Mean Corp Hgb Conc 31.3 g/dL (32-36); Mean Corpuscular Hgb 31.8 pg (27.0-32.0); Mean Corpuscular Volume 101.6 fL (80-94); Mean Platelet Vol. 10.5 fl (6.2-12.0); Monocyte# 0.79 X10^3/uL; NRBC Flagged by Analyzer 0 % (0-5); Neutrophil # 4.41 X10^3/uL (2.7-7.7); Neutrophil % 55.8 % (47-70); Platelet Count 285 K/mm3 (150-450); RBC Distribution Width CV 13.2 % (11.6-14.6); RBC Distribution Width SD 49.6 fl (35.1-43.9); Red Blood Count 4.31 M/mm3 (4.6-6.2); White Blood Count 7.9 K/mm3 (4.4-11.0)
[2023-08-05 11:03] LABS: Protein, Urine (Random) 12.6 mg/dL (<11.9); Protein:Creat Ratio 99 mg/g CRE (0-200)
[2023-08-05 11:05] LABS: AST(SGOT) 26 U/L (15-37); Alanine Aminotransfer ALT/SGPT 24 U/L (16-61); Albumin, Serum 3.7 g/dL (3.2-5.0); Alkaline Phosphatase 50 U/L (45-117); Anion Gap 4 (5-15); BUN 55 mg/dL (7-18); BUN/Creat Ratio 25.3 RATIO (10-20); Calcium,Total 9.5 mg/dL (8.5-10.1); Chloride 111 mmol/L (98-107); Cholesterol 140 mg/dL (200); Creatinine, Serum 2.17 mg/dL (0.70-1.30); EST Glomerular Filtration Rate 32 mL/min (>60); Est Glom Filt Rate - Afr Amer 39 mL/min (>60); Globulin 3.8 g/dL (2.2-4.2); Glucose 99 mg/dL (74-106); High Density Lipoprotein 30 mg/dL; Potassium 5.1 mmol/L (3.5-5.1); Protein, Total 7.5 g/dL (6.4-8.2); Sodium Level 138 mmol/L (136-145); Triglycerides 140 mg/dL; Very Low Density Lipoprotein 28 mg/dL (5-40)
== END | disposition home or self-care (01) ==
LOC: MTLAB 08:05
PROVIDERS: PCP Family Medicine; Referring Provider Family Medicine; Visit Provider Family Medicine
DX: Z00.00 Encounter for general adult medical examination without abnormal findings (principal); E11.22 Type 2 diabetes mellitus with diabetic chronic kidney disease; N18.30 Chronic kidney disease, stage 3 unspecified; I12.9 Hypertensive chronic kidney disease with stage 1 through stage 4 chronic kidney disease, or unspecified chronic kidney disease; E78.5 Hyperlipidemia, unspecified
CPT/HCPCS: 36415; 80053; 80061; 82570; 84156; 85025

== ENCOUNTER → 2023-09-24 | Outpatient (CLI) | payer MEDICARE, SELFPAY ==
--- NOTE | 2023-09-24 12:52 | US_ITS ---
STUDY: RENAL ULTRASOUND - COMPLETE REASON FOR EXAM: Male, 73 years old. CKD3 TECHNIQUE: Ultrasound evaluation of the kidneys was performed with real-time and static gordon-scale imaging. COMPARISON: Comparison is made with prior study October 02, 2020. FINDINGS: RIGHT KIDNEY: Normal location of the right kidney, which is normal in size. The right kidney measures 10.9 cm x 5 cm x 5.1 cm. There is a normal cortex of the right kidney. The renal cortex measures 1.3 cm. There is no right renal mass or cyst. 2. Nonobstructive intrarenal calculi. The largest calculus measures 6 mm x 6 mm x 3 mm. There is no right hydronephrosis. DISTAL RIGHT URETER: There is non-visualization of the distal right ureter. There is no demonstrated right ureterovesical junction calculus. There is a visualized right ureteral jet. LEFT KIDNEY: Normal location of the left kidney, which is normal in size. The left kidney measures 14.1 cm x 6.1 cm x 6.8 cm. There is a normal cortex of the left kidney. The renal cortex measures 1.9 cm. There is no left renal mass or cyst. There is a 4 mm x 3 mm x 3 mm nonobstructive intrarenal calculus. There is no left hydronephrosis. DISTAL LEFT URETER: There is non-visualization of the distal left ureter. There is no demonstrated left ureterovesical junction calculus. There is a visualized left ureteral jet. BLADDER: The distended urinary bladder has a volume of 145 ml. There is a normal wall thickness of the distended urinary bladder. There is no demonstrated mass within the urinary bladder. There are no demonstrated bladder calculi. US/Kidney and Bladder IMPRESSION: There are small bilateral nonobstructive intrarenal calculi. Electronically Signed: Pelon Ramon MD at 15:04 EDT ,
== END | disposition home or self-care (01) ==
LOC: US 12:51
PROVIDERS: PCP Family Medicine; Referring Provider Internal Medicine Nephrology; Visit Provider Internal Medicine Nephrology
DX: N18.32 Chronic kidney disease, stage 3b (principal)
CPT/HCPCS: 76770

== ENCOUNTER → 2023-09-29 | Outpatient (CLI) | payer MEDICARE, SELFPAY ==
[2023-09-29 15:28] LABS: Protein, Urine (Random) 15.7 mg/dL (<11.9); Protein:Creat Ratio 99 mg/g CRE (0-200)
[2023-09-29 15:33] LABS: Albumin, Serum 3.4 g/dL (3.2-5.0); BUN 57 mg/dL (7-18); BUN/Creat Ratio 26.6 RATIO (10-20); Calcium,Total 9.9 mg/dL (8.5-10.1); Chloride 106 mmol/L (98-107); Creatinine, Serum 2.14 mg/dL (0.70-1.30); EST Glomerular Filtration Rate 32 mL/min (>60); Est Glom Filt Rate - Afr Amer 39 mL/min (>60); Glucose 146 mg/dL (74-106); Phosphorus 3.6 mg/dL (2.5-4.9); Potassium 5.1 mmol/L (3.5-5.1); Sodium Level 139 mmol/L (136-145)
[2023-10-01 13:09] LABS: Anti-dsDNA Ab 6 IU/mL (0-9)
[2023-10-04 21:07] LABS: Anti-Glomerular Basement Memb < 0.2 units (0.0-0.9); Complement C3 151 mg/dL (82-167); Cytoplasmic Ab (C-ANCA) <1:20 titer (Neg:<1:20); PROEL- A/G Ratio 1.1 (0.7-1.7); PROEL- Albumin 3.5 g/dL (2.9-4.4); PROEL- Alpha-1 Globulin 0.3 g/dL (0.0-0.4); PROEL- Alpha-2 Globulin 0.7 g/dL (0.4-1.0); PROEL- Beta Globulin 1.1 g/dL (0.7-1.3); PROEL- Globulin, Total 3.1 g/dL (2.2-3.9); PROEL- TOTAL PROTEIN 6.6 g/dL (6.0-8.5); PROEL-M-Spike Not Observed g/dL (Not Observed); Perinuclear Ab (P-ANCA) <1:20 titer (Neg:<1:20)
== END | disposition home or self-care (01) ==
LOC: MTLAB 11:38
PROVIDERS: PCP Family Medicine; Referring Provider Internal Medicine Nephrology; Visit Provider Internal Medicine Nephrology
DX: N18.32 Chronic kidney disease, stage 3b (principal)
CPT/HCPCS: 36415; 80069; 82570; 83520; 84156; 84165; 86160; 86225; 86256

== ENCOUNTER → 2024-08-29 | Outpatient (CLI) | payer MEDICARE, SELFPAY ==
--- OUTSIDE RECORDS SUMMARY | 2024-08-29 09:55 | XMS RPT_ITS | CCD ---
Author Organization [facility] Care Team Providers Care Business Systems Advisor Name Role Phone Unavailable Primary Care Provider Unavailabl e Otto, Jayaprakas Referring Unavailable Otto, Jayaprakas Attending Unavailable Miedel, Babita Primary Care Unavailable Otto, Jayaprakas Referring Unavailable Otto, Jayaprakas Attending Unavailable Miedel, Babita Primary Care Unavailable Miedel, Babita Referring Unavailable Miedel Babita Attending Unavailable Hair, Babita Primary Care Unavailable RHIANNON PELLETIER Referring Unavailable KARIE MORAES Attending Unavailable RHIANNON PELLETIER Attending Unavailable KARIE MORAES Referring Unavailable KARIE MORAES Attending Unavailable Allergies Allergy Classification Reported Allergen(s) Allergy Type Date of Onset Reaction(s) Facility Acetaminophen / oxyCODONE (2 sources) Acetaminophen / oxyCODONE Drug Allergy 08-23-2023 [facility] (1 source) Acetaminophen Drug Allergy 11-25-2020 [facility] (1 source) oxyCODONE Drug Allergy 11-25-2020 [facility] (3 sources) Acetaminophen / oxyCODONE; Translations: [OXYCODONE-ACETAMI NOPHEN] Drug Allergy 08-23-2023 [facility] Medications Current Medications Medication Drug Class(es) Dates Sig (Normalized) Sig (Original) amLODIPine 10 mg oral tablet (3 sources) Dihydropyridine Calcium Channel Griselda take 1 tablet by mouth once daily amLODIPine (NORVASC) 10 mg tablet Take 10 mg by mouth once daily. Active atorvastatin 20 mg oral tablet (3 sources) HMG-CoA Reductase Inhibitor take 1 tablet by mouth once daily atorvastatin (LIPITOR) 20 mg tablet Take 20 mg by mouth once daily. Active Blood Pressure Monitor (3 sources) Blood Pressure Monitor 1 Each once daily. Active Blood Pressure M onitor 1 Each once daily. 0 Active fenofibrate 134 mg oral capsule (3 sources) Peroxisome Proliferator Receptor alpha Agonist take 1 capsule by mouth once daily at breakfast fenofibrate (LOFIBRA) 134 mg capsule Take 134 mg by mouth daily with breakfast. Active hydroCHLOROthiazide 25 mg / valsartan 320 mg oral tablet (3 sources) Thiazide Diuretic, Angiotensin 2 Receptor Griselda take 1 tablet by mouth once daily Valsartan-hydroCHLO ROthiazide 320-25 mg per tablet Take 1 tablet by mouth once daily. Active 24 hr metoprolol succinate 25 mg extended release oral tablet (3 sources) beta-Adrenergic Griselda take 1 tablet by mouth once daily metoprolol succinate ER (TOPROL XL) 25 mg 24 hr tablet Take 25 mg by mouth once daily. Active omega-3 DHA-EPA (FISH OIL) 1,200 (144-216) mg capsule (3 sources) take 1 capsule by mouth once daily at breakfast omega-3 DHA-EPA (FISH OIL) 1,200 (144-216) mg capsule Take 1 capsule by mouth daily with breakfast. Active take 1 capsule by [facility] once daily at breakfast omega-3 DHA-EPA (FISH OIL) 1,200 (144-21 6) mg capsule Take 1 capsule by mouth daily with breakfast. 0 Active polyethylene glycol 3350 751629 mg / potassium chloride 2970 mg / sodium bicarbonate 6740 mg / sodium chloride 5860 mg / sodium sulfate 27705 mg powder for oral solution (1 source) Osmotic Laxative Start: 08-25-2023 End: 08-25-2023 peg 3350-Electrolytes (GOLYTELY) 236-22.74-6.74 -5.86 gram suspension Indications: Screen for colon cancer Take 4,000 mL by mouth one time only for 1 dose. Refer to printed prep instructions from your provider. 4000 mL 0 08/25/2023 08/25/2023 Active tadalafil 5 mg oral tablet (3 sources) Phosphodiesterase 5 Inhibitor take 1 tablet by mouth once daily as needed Tadalafil (CIALIS) 5 mg tablet Take 5 mg by mouth once daily as needed. Active vit C/E/cuperic/zinc/ lutein (PRESERVISION LUTEIN ORAL) (3 sources) take 1 capsule by mouth once daily vit C/E/cuperic/zinc/lute in (PRESERVISION LUTEIN ORAL) Take 1 capsule by mouth once daily. Active take 1 capsule by mouth once michael ly vit C/E/cuperic/zinc/lutein (PRESERVISION LUTEIN ORAL) Take 1 capsule by mouth once daily. 0 Active vitamin b12 1 mg oral tablet (3 sources) Vitamin B12 take 1 tablet by mouth once daily cyanocobalamin (VITAMIN B-12) 1,000 mcg tab Take 1,000 mcg by mouth once daily. Active Completed/Discontinued Medications Medication Drug Class(es) Dates Sig (Normalized) Sig (Original) calcium chloride 0.0014 meq/ml / potassium chloride 0.004 meq/ml / sodium chloride 0.103 meq/ml / sodium lactate 0.028 meq/ml injectable solution (1 source) Start: 12-07-2023 End: 12-07-2023 take 75 mL intravenously every hour 75 mL/hr, INTRAVENOUS, CONTINUOUS, Starting on Wed12/07/23 at 1230, Until Wed12/07/23 at 1302, Preprocedure diphenhydrAMINE (1 source) Histamine-1 Receptor Antagonist Start: 12-07-2023 End: 12-07-2023 12.5-50 mg, INTRAVENOUS, DIRECTED, Starting on Wed12/07/23 at 1300, Until Wed12/07/23 at 1659, DOSING DIRECTED BY PHYSICIAN FOR PROCEDURAL SEDATION ONLY, Intraprocedure 1 ml fentaNYL 0.05 mg/ml injection (1 source) Opioid Agonist Start: 12-07-2023 End: 12-07-2023 25-100 mcg, INTRAVENOUS, DIRECTED, Starting on Wed12/07/23 at 1300, Until Wed12/07/23 at 1659, DOSING DIRECTED BY PHYSICIAN FOR PROCEDURAL SEDATION ONLY, Intraprocedure 5 ml midazolam 1 mg/ml injection (1 source) Benzodiazepine Start: 12-07-2023 End: 12-07-2023 1-5 mg, INTRAVENOUS, DIRECTED, Starting on Wed12/07/23 at 1300, Until Wed12/07/23 at 165, DOSING DIRECTED BY PHYSICIAN FOR PROCEDURAL SEDATION ONLY, Intraprocedure Problems Problem Classification Problem Date Documented Da te Episodic/Chronic Chronic kidney disease (1 source) Chronic kidney disease; Translations: [Chronic kidney disease, stage 3b] Onset: 10-24-2023 Disorders of lipid metabolism (4 sources) Mixed hyperlipidemia; Translations: [Mixed hyperlipidemia] Onset: 08-23-2023 08-23-2023 Chronic Essential hypertension (4 sources) Essential hypertension; Translations: [Essential (primary) hypertension] Onset: 08-23-2023 08-23-2023 Chronic Other and unspecified benign neoplasm (1 source) Benign neoplasm of colon, unspecified; Translations: [Benign neoplasm of colon] 12-15-2023 Episodic Other screening for suspected conditions (not mental disorders or infectious disease) (5 sources) Patient encounter status; Translations: [Encounter for screening for malignant neoplasm of colon] Onset: 12-07-2023 08-25-2023 Episodic Retinal detachments; defects; vascular occlusion; and retinopathy (4 sources) Degenerative disorder of macula ; Translations: [Unspecified macular degeneration] Onset: 08-23-2023 08-23-2023 Chronic Results Test Name Value Interpretation Reference Range Facility [facility] 12-15-2023 CNOV Office Visit (GENSWS) MANAS HAWKINS ([id number]) 1950 Date Time Provider Department 12/15/23 1:30 PM KARIE MORAES During your visit today, we recorded the following information about you: Pulse Blood pressure 83/minute 182/79 Karie Moraes APRN.PRECISION AGRICULTURE SPECIALIST 12/15/2023 1:37 PM Signed FOLLOW UP VISIT - ENDOSCOPY Manas Hawkins 1950 [id number] REFERRING PHYSICIAN: Rhiannon Pelletier [address] [facility] [id number] Manas Hawkins is a patient I am following for screening colonoscopy. Dr. Pelletier performed lower endoscopy on 12/07/23. The patient was found to have Impression: - Non-bleeding external and internal hemorrhoids. - One 10 to 12 mm polyp in the transverse colon, removed with a cold biopsy forceps. Resected and retrieved. Pathology demonstrated: FINAL DIAGNOSIS Colon, transverse, polyp, biopsy: - Sessile serrated polyp. The patient notes no complaints since the procedure. VITALS: There were no vitals taken for this visit. General: patient is alert, cooperative, pleasant and in no acute distress On examination, the abdomen is benign. Assessment ASSESSMENT/PLAN: 1. Sessile serrated polyp of colon - ICD9: 211.3, ICD10: D12.6 The operative findings and pathology report were reviewed with the patient, and the patient has had the opportunity to ask questions and have questions answered. If the patient notes any problems or changes in bowel function, the patient should contact me immediately. Otherwise I recommend follow up endoscopy in 3 years. HM updated and recall letter generated. Discussed treatment plan and patient voices understanding. Patient's questions answered appropriately. Medications and potential side effects were discussed and patient voices understanding. Return to the office as scheduled or as needed for worsening/no improvement. Karie Moraes APRN.PRECISION AGRICULTURE SPECIALIST Referring Provider: RHIANNON PELLETIER [[id number]] Allergies As of Date: 12/15/2023 Noted Allergy Reaction PERCOCET (OXYCODONE-ACETAMINO PHEN)08/23/2023 8 - GI Upset Comments: Patient states he gets sick Date Reviewed: 12/15/2023 Reviewed by: Karie Moraes APRN.PRECISION AGRICULTURE SPECIALIST - Fully Assessed Reason for Visit: post colonoscopy check [Other] Primary Visit Diagnosis:Sessile serrated polyp of colon [D12.6] Prescriptions as of 12/15/2023 - amLODIPine (NORVASC) 10 mg tablet Take 10 mg by mouth once daily. - atorvastatin (LIPITOR) 20 mg tablet Take 20 mg by mouth once daily. - Tadalafil (CIALIS) 5 mg tablet Take 5 mg by mouth once daily as needed. - fenofibrate (LOFIBRA) 134 mg capsule Take 134 mg by mouth daily with breakfast. - metoprolol succinate ER (TOPROL XL) 25 mg 24 hr tablet Take 25 mg by mouth once daily. - Valsartan-hydroCHLOR Othiazide 320-25 mg per tablet Take 1 tablet by mouth once daily. - Blood Pressure Monitor 1 Each once daily. - omega-3 DHA-EPA (FISH OIL) 1,200 (144-216) mg capsule Take 1 capsule by mouth daily with breakfast. - vit C/E/cuperic/zinc/lut ein (PRESERVISION LUTEIN ORAL) Take 1 capsule by mouth once daily. - cyanocobalamin (VITAMIN B-12) 1,000 mcg tab Take 1,000 mcg by mouth once daily. Problem List As Of Date 12/15/2023 Noted Resolved Essential hypertension [I10] 08/23/2023 Macular degeneration [H35.30] 08/23/2023 Mixed hyperlipidemia [E78.2] 08/23/2023 Screen for colon cancer [Z12.11] 12/07/2023 Encounter Status:Closed by KARIE MORAES on 12/15/23 Normal [facility] SURGICAL PATHOLOGYOrdered By : Trinh Govea on 12-08-2023 Case Report Surgical Pathology Report Case: [id number] Authorizing Provider: Rhiannon Pelletier MD Collected: 12/07/2023 12:48 PM Ordering Location: Ambulatory Surgery Received: 12/07/2023 03:17 PM Pathologist: Trinh Govea MD Specimen: Colon, Transverse, Polyp [facility] Work Phone: FINAL DIAGNOSIS [id number] JacrirFgJICpuPNjM1Qe lysiRGfiIE9fIQ0hzAjc vFSxhELlOIQiTcZju8hs i934vYMnc0tsQNBLoxyc gQj5oLysH93fs1D0Qhex K14uqOPdNKI2HTWaDZId tEBqPIRxWDM2OSRnqIJj K4fhFPBvRL0ktjnxFMfb YKdtQJVozHL8UUFpaRJd H1EnCNYjKWvcMOZundc2 WgLbXi8ajBYuaRabKDlt YXJkXHBsYWluXGZzMjAg W22dm73qNWFqMG7grcWl f5UdMSSxiIepXXWfiD1k k4o8IP7sU7Jcn0tjPGMh ZADcKYWiFXQrx8w0tW4o cGFyfQ== [facility] Work Phone: Gross Description n1ykyDOhMXMnyDHAOGD7 ATRnNC9upZkjiOf9yRtb HHUxziD9fEFdDAkdo6da ZFE7y7ilchPWRmlsXAWc FE2mLWthENGhHH5gRmQm XGRlZmYxXHBhcGVydzEy VmVkWTUwuJOmnTH2PDYa EG4ztpjgXEueYLiaSAIw evC1FZXywVHbL5FcDXRt QM4idacuWBQ9QMTRMldi Pi6boXMgoNznXmTaGmKw OAVfXAKvOZCdi6vxjhGN kwdfxOt0aE5EZHKrR6Wd AU0Gr4qiGTZzkSLeAYS4 FSlay4rvWIuwJWJ9QFGh DQTxHJObTJ0BUvZzJWy2 IKMeDVP6CtN5AEb1QYZB QOEnFSQ9DYI5LZYwVVe3 OTkgXFxuaCBcXHQgMSBc PJQaBEdzjfG4f2icSTHb mVZtPRG6YTxjy3dgCJkv XMQ8CKGqTnFcHMJdAX6B SdYyNId8XYZcAYY0EiH4 IOj5WAHGVpLgOuGfZCc4 ThY5CGGsKZf1DFi7NOxZ LxGtCao2Jpu9IWV2QLK4 NDQxMCBcXHQgMiBcXHNz RQQjWYpxzBKlXJ0lhQrd NHSdAN5KMGEySQqzPFXr IxIeMK6sS00vz81bFQSz NW1vurPct3NiVQLesSbs IMz0xqCtYZKrpmXLOvsv UDCaBN1KSMRyXJrzULh2 jhVpUYUpNhKxSJTaU66b o6ZYx1NvYD8YFQu0slAr csSSIgwvpcQtLMAsF7Xa ifVuOKzkZKNxos2xxMml ZDGwBTVahBd6qMOlMSAz vXDpKBRjc1RapFLsDRCk y8L0IICru5B5GFAqY0zk LOssdWxlSpH1mmBgSqfl lJBtYhIoqIDcMtPtN69t UWSmeTFzqKtcx2JlcYp6 lUQoLHohQU1sHOTsBUZd JND6MV4wGYQjqgNFXklb IDWlYEiPjy2wwoPcvFKe qQ9faUwnjaMkCLMrq6Mg JSPzLFFnV5bidkDuOI0c YFPnsH8bMxybPYRtKCYS fVNhiVEfCRCeMpvcC1ha alXtWF5nXIMMIWC5ZUM5 AQbkFZXfPWpazCFeOQ2V SlQgMTAvMDkvMjAyNCAy LuT0OLBSAFIfwoWVAroc GGTeSYPwnXRWt6LfIRNL ClxlcGljTmVzdERvYzB7 NMTmlIVvKXJ0CX4zcNwv JZJgS4DdZ9GdssL4TMDu wyVUYhiqJBZwQA2KKIPw MjIgDQp9 [facility] Work Phone: Performing Lab t6pamGSsVYXhyPFdJcJy MJHwOSTik1rdPEAvfRHe ZzEwMzNcZnRuYmpcdWMx TAZoLmFqt6nkz402aXJf k3ugVNNrAkT4rRCdGXVn jZSgW252PTPpGZumj9os x5GwXIKztAEcp7S7NFLY ibcpuCn6tYhgN25cp9T2 XdlwZ2huWMGyYACoB1Ic HP0zYYDoCxl4FWF8FHA9 ROBeJZNiU2XtZV7oZQVc pFFzNEr3a0ioqWpbMSZy OVC3z3dbNFssryMlZF3e jr6ikHd9q2jsmuZnVIXo QUCbzQOHGDXsR2QwnQot Ur1chMr7eKagZbznMFA2 Gmq9GH3nsz45meu9dMlz RCRiqiovUmO3AGvsCSQz hiyfSHh5ALxaSVYucUK4 KWDybRDzV0ZbFAudRS2t zkj5XTB0GDroHUOiEeD0 NDBcaGVhZGVyeTcyMFxm u590BKD5XcDkFM8gW6Pa n5M8qE0vyAHkKKFatOUi FhKiQMNweb1gfPDmQLot y7QrFDE8guM4nNTwnFYf RLFrXR21Wlyby9JiWsrx s0JfW11pmXD3BAknv9ym BQ8dScK6hsJhSRner3ua lQ7rHwW4KYjtLA6lXB4j SDGlbZ2rymzxUULwIePc mjxyPSMhmLwucvCuRi9x jBfgONO7AUojQ9dylY4m VqA2EUemO4ugzS8eKCh3 WSyphPP2KWDzfY6bEL3w dumxb5urKWorMGdnZCNs ulI3ogYxCZQrlOHpW7Gr fX1gRQXnVD0dvaszz8fj QSV5LCjrHDDfYVC7BsGi BUVuk5Nnrzi1HjXjy2Yn lXKaDKjgN58tb628WMIb wlSzI0cahRUokrsfeXUs jhfdWUexekW7CGOnLKMr YWluXGYxXGZzMjBcbGFu ZzEwMzNcaGljaFxmMVxk AfQxHBThFScoS0pzKoQf GuHrFUAVpRAkhi8yqPcc QLoeuVZqfVHqiMZ2lJ3j BLKqukYdjz1xMLEqoJFT jCG9DXihjnGfZ4kiqhrm TMG8DHGyEJQ2V5koIMNI dmUsIENsZXZlbGFuZCBP DMZ6SGV9OGSyHTKRTGKy PIY4LKX8WCTgNVHujMTn XHBhclxwYXJkXHBsYWlu JHNkHEZkPlPzbSagfW4n AxUnUiHrHUwiDY5fNUTk U0vfaQRwJZEtOSCfT7fr XfEqfS8ujGhvHJstGzWz ZnMyMFxsdHJjaCBMYWJv wjI7h6Z0ZFdsdZCqkrwe MVxmczIwXGxhbmcxMDMz DZliM2coMxMuDBVwrXij MVhps4MiASXrUCDbBuWv GHesHEV4s1N6IBxdaORf pqGMBcVXSV9vlZEdauzb BE5JGvoqbTZbflejRSjr czIyXGxhbmcxMDMzXGhp E1ewZlIvLIBraVulKHbv z0RvORLkTYKmXyOupZOd fQ== [facility] Work Phone: [facility] Work Phone: [phone] 12-07-2023 [id number] HNO ID: [id number] Author: JAHAIRA PARKS RN Service: ? Author Type: Registered Nurse Type: [id number] Filed: 12/07/2023 13:22 Note Text: The patient received a copy of Colonoscopy discharge instructions that contain information for how to contact the physician who performed the procedure and when to seek medical care. Normal [facility] Colonoscopyon 12-07-2023 Colonoscopy [facility] Gastrointestinal Endoscopy Patient Name: Manas Hawkins Procedure Date: 12/07/2023 12:07 PM Date of : 1950 Admit Type: Outpatient Age: 73 Gender: Male Note Status: Finalized Procedure: Colonoscopy Indications: Screening for colorectal malignant neoplasm Providers: Rhiannon Pelletier MD Patient Profile: Refer to note in patient chart for documentation of history and physical. Last Colonoscopy: more than 10 years ago. Referring Physician: Karie Moraes (Referring MD) Medicines: Midazolam 5 mg IV, Fentanyl 50 micrograms IV, Diphenhydramine 50 mg IV Complications: No immediate complications. Requesting Provider: Procedure: Pre-Anesthesia Assessment: - Prior to the procedure, a History and Physical was performed, and patient medications and allergies were reviewed. The patient is competent. The risks and benefits of the procedure and the sedation options and risks were discussed with the patient. All questions were answered and informed consent was obtained. Patient identification and proposed procedure were verified by the physician in the pre-procedure area. Mental Status Examination: alert and oriented. Airway Examination: normal oropharyngeal airway and neck mobility. Respiratory Examination: clear to auscultation. CV Examination: normal. Prophylactic Antibiotics: The patient does not require prophylactic antibiotics. Prior Anticoagulants: The patient has taken no anticoagulant or antiplatelet agents. ASA Grade Assessment: II - A patient with mild systemic disease. After reviewing the risks and benefits, the patient was deemed in satisfactory condition to undergo the procedure. The anesthesia plan was to use moderate sedation / analgesia (conscious sedation). Immediately prior to administration of medications, the patient was re-assessed for adequacy to receive sedatives. The heart rate, respiratory rate, oxygen saturations, blood pressure, adequacy of pulmonary ventilation, and response to care were monitored throughout the procedure. The physical status of the patient was re-assessed after the procedure. After I obtained informed consent, the scope was passed under direct vision. Throughout the procedure, the patient's blood pressure, pulse, and oxygen saturations were monitored continuously. The Colonoscope was introduced through the anus and advanced to the cecum, identified by palpation. The colonoscopy was performed without difficulty. The patient tolerated the procedure well. The quality of the bowel preparation was suboptimal. There was still retained fecal material which required lavage and aspiration to visualize the levine adequately. This was done, but took some time, however, the levine were visualized adequately. The appendiceal orifice and the rectum were photographed. Moderate Sedation: The administration of moderate sedation was initiated at 12:30 PM. Moderate (conscious) sedation was personally administered by the endoscopist. The following parameters were monitored: oxygen saturation, heart rate, blood pressure, respiratory rate, EKG, adequacy of pulmonary ventilation, and response to care. Total physician intraservice time was 22 minutes. Findings: The perianal and digital rectal examinations were normal. Non-bleeding external and internal hemorrhoids were found. A 10 to 12 mm polyp was found in the transverse colon. The polyp was sessile. The polyp was removed with a cold biopsy forceps. Resection and retrieval were complete. Verification of patient identification for the specimen was done by the nurse. Estimated blood loss was minimal. Impression: - Non-bleeding external and internal hemorrhoids. - One 10 to 12 mm polyp in the transverse colon, removed with a cold biopsy forceps. Resected and retrieved. Recommendation: - Repeat colonoscopy date to be determined after pending pathology results are reviewed for surveillance. - - Follow up with Gianna Moraes NP, may be via televisit for discussion of pathology results and determination of timing of future endoscopies - Patient has a contact number available for emergencies. The signs and symptoms of potential delayed complications were discussed with the patient. Return to normal activities tomorrow. Written discharge instructions were provided to the patient. - Continue present medications. - Resume previous diet. Procedure Code(s): --- Professional --- 30865, Colonoscopy, flexible; with biopsy, single or multiple 33042, 59, Moderate sedation services provided by the same physician or other qualified health neonatal intensive care unit nurse performing the diagnostic or therapeutic service that the sedation supports, requiring the presence of an independent trained observer to assist in the monitoring of the patient's level of consciousness and physiological status; initial 15 minutes of intraservice time, pa (more content not included)... Normal [facility] Colonoscopy Study observatio non 12-07-2023 [facility] Gastrointestinal Endoscopy Patient Name: Manas Hawkins Procedure Date: 12/07/2023 12:07 PM Date of : 1950 Admit Type: Outpatient Age: 73 Gender: Male Note Status: Finalized Procedure: Colonoscopy Indications: Screening for colorectal malignant neoplasm Providers: Rhiannon Pelletier MD Patient Profile: Refer to note in patient chart for documentation of history and physical. Last Colonoscopy: more than 10 years ago. Referring Physician: Karie Moraes (Referring MD) Medicines: Midazolam 5 mg IV, Fentanyl 50 micrograms IV, Diphenhydramine 50 mg IV Complications: No immediate complications. Requesting Provider: Procedure: Pre-Anesthesia Assessment: - Prior to the procedure, a History and Physical was performed, and patient medications and allergies were reviewed. The patient is competent. The risks and benefits of the procedure and the sedation options and risks were discussed with the patient. All questions were answered and informed consent was obtained. Patient identification and proposed procedure were verified by the physician in the pre-procedure area. Mental Status Examination: alert and oriented. Airway Examination: normal oropharyngeal airway and neck mobility. Respiratory Examination: clear to auscultation. CV Examination: normal. Prophylactic Antibiotics: The patient does not require prophylactic antibiotics. Prior Anticoagulants: The patient has taken no anticoagulant or antiplatelet agents. ASA Grade Assessment: II - A patient with mild systemic disease. After reviewing the risks and benefits, the patient was deemed in satisfactory condition to undergo the procedure. The anesthesia plan was to use moderate sedation / analgesia (conscious sedation). Immediately prior to administration of medications, the patient was re-assessed for adequacy to receive sedatives. The heart rate, respiratory rate, oxygen saturations, blood pressure, adequacy of pulmonary ventilation, and response to care were monitored throughout the procedure. The physical status of the patient was re-assessed after the procedure. After I obtained informed consent, the scope was passed under direct vision. Throughout the procedure, the patient's blood pressure, pulse, and oxygen saturations were monitored continuously. The Colonoscope was introduced through the anus and advanced to the cecum, identified by palpation. The colonoscopy was performed without difficulty. The patient tolerated the procedure well. The quality of the bowel preparation was suboptimal. There was still retained fecal material which required lavage and aspiration to visualize the levine adequately. This was done, but took some time, however, the levine were visualized adequately. The appendiceal orifice and the rectum were photographed. Moderate Sedation: The administration of moderate sedation was initiated at 12:30 PM. Moderate (conscious) sedation was personally administered by the endoscopist. The following parameters were monitored: oxygen saturation, heart rate, blood pressure, respiratory rate, EKG, adequacy of pulmonary ventilation, and response to care. Total physician intraservice time was 22 minutes. Findings: The perianal and digital rectal examinations were normal. Non-bleeding external and internal hemorrhoids were found. A 10 to 12 mm polyp was found in the transverse colon. The polyp was sessile. The polyp was removed with a cold biopsy forceps. Resection and retrieval were complete. Verification of patient identification for the specimen was done by the nurse. Estimated blood loss was minimal. Impression: - Non-bleeding external and internal hemorrhoids. - One 10 to 12 mm polyp in the transverse colon, (more content not included)... [facility] Radiology Study observation (narrative) [facility] HISTORY PHYSICALon HISTORY PHYSICAL HNO ID: [id number] Author: RHIANNON PELLETIER MD Service: General Surgery Author Type: Physician Type: H&P Filed: 12/07/2023 12:33 Note Text: HISTORY AND PHYSICAL Manas Hawkins 1950 REFERRING PHYSICIAN: Karie Moraes APRN.* CHIEF COMPLAINT: No chief complaint on file. HPI: The patient is a 73 year old male here for screening for colon cancer via colonosocpy, last colonoscopy > 10 y ago PAST MEDICAL HISTORY Diagnosis Date Cataracts, bilateral Chronic renal disease Diabetes mellitus (HCC) Diverticulitis Erectile dysfunction Essential hypertension History of hernia repair History of partial colectomy Macular degeneration Mixed hyperlipidemia PAST SURGICAL HISTORY Procedure Laterality Date BOWEL RESECTION HX 1995 had colectomy for a while COLONOSCOPY per pt late REMV CATARACT EXTRACAP,INSERT LENS REPAIR EPIGASTRIC HERNIA,REDUC Current Outpatient Medications Medication Sig amLODIPine (NORVASC) 10 mg tablet Take 10 mg by mouth once daily. atorvastatin (LIPITOR) 20 mg tablet Take 20 mg by mouth once daily. Tadalafil (CIALIS) 5 mg tablet Take 5 mg by mouth once daily as needed. fenofibrate (LOFIBRA) 134 mg capsule Take 134 mg by mouth daily with breakfast. metoprolol succinate ER (TOPROL XL) 25 mg 24 hr tablet Take 25 mg by mouth once daily. Valsartan-hydroCHLOR Othiazide 320-25 mg per tablet Take 1 tablet by mouth once daily. Blood Pressure Monitor 1 Each once daily. omega-3 DHA-EPA (FISH OIL) 1,200 (144-216) mg capsule Take 1 capsule by mouth daily with breakfast. vit C/E/cuperic/zinc/lut ein (PRESERVISION LUTEIN ORAL) Take 1 capsule by mouth once daily. cyanocobalamin (VITAMIN B-12) 1,000 mcg tab Take 1,000 mcg by mouth once daily. Current Facility-Administere d Medications Medication Dose Route Frequency lidocaine (PF) 10 mg/mL (1 %) 1-2 mg injection (XYLOCAINE) 0.1-0.2 mL INTRADERMAL PRN lactated ringers iv infusion 75 mL/hr INTRAVENOUS CONTINUOUS ALLERGIES: Percocet [Oxycodone-Acetamino phen] PERSONAL HISTORY: Social History Tobacco Use Smoking status: Every Day Current packs/day: 1.00 Average packs/day: 1 pack/day for 15.0 years (15.0 ttl pk-yrs) Types: Cigarettes Smokeless tobacco: Never Vaping Use Vaping status: Never Used Substance Use Topics Alcohol use: Not Currently Comment: hasn't had a drink 7-9 years Drug use: Never FAMILY HISTORY Problem Relation Age of Onset Breast Cancer Mother REVIEW OF SYSTEMS: Denies headaches Denies chest pain Denies shortness of breath PHYSICAL EXAMINATION: General: The patient is 73 year old male, well nourished, well hydrated in no acute distress. The patient is oriented to time, place, and person. VITALS: Blood pressure 198/88, pulse 76, temperature 36.2 ?C (97.2 ?F), resp. rate 16, weight 114.7 kg (252 lb 13.9 oz), SpO2 98%. Body mass index is 33.36 kg/m?. Head: Normal cephalic, atraumatic Eyes: pupils are equally round, sclera are clear/anicteric Neck is supple with no tracheal deviation Cardiac: normal heart sounds, regular Respiratory: Normal respiratory excursion and pattern. Abdominal exam: benign Extremities: no clubbing, cyanosis or edema. Neuro: non focal Psych: normal mood Assessment IMPRESSION: screening for colon cancer via colonosocpy PLAN: I have discussed the above with the patient. I have offered colonoscopy , possible biopsies I have explained the procedure to the patient. I have counseled the patient as to the risks of the procedure, including but not limited to: infection, bleeding, injury to any intrabdominal organs such as liver/spleen, perforation of the GI tract, inability to complete the procedure, complications of anesthesia, etc. - the patient understands. The patient wishes to proceed. I have answered all questions to the patient?s satisfaction and the patient has no further questions. . Rhiannon Pelletier MD Normal [facility] SURGICAL PATHOLOGYon CASE REPORT Normal [facility] Comment on above: Order Comment: Speci men Type: TISSUE SPECIMEN [facility] Address: [address] [place] [address] Result Comment: Surg [facility] Pathology Report Case: [id number] Authorizing Provider: Rhiannon Pelletier MD Collected: 12/07/2023 12:48 PM Ordering Location: Ambulatory Surgery Received: 12/07/2023 03:17 PM Pathologist: Trinh Govea MD Specimen: Colon, Transverse, Polyp Performed By: #### S #### [facility] CLIA [id number] [address] [place] [address] OF [facility] FINAL DIAGNOSIS Normal [facility] Comment on above: Order Comment: Speci men Type: TISSUE SPECIMEN [facility]ing Facility: [facility] Address: [address] [place] [address] Result Comment: [place] n, transverse, polyp, biopsy: - Sessile serrated polyp. Performed By: #### S #### [facility] CLIA [id number] [address] [place] [address] OF [facility] FINAL PERFORMING LAB Normal [facility] Comment on above: Order Comment: Speci men Type: TISSUE SPECIMEN Ordering Facility: [facility] Address: [address] [place] [address] Result Comment: Diag nostic interpretation performed at [facility], [address] [place] [address] CLIA# [id number] Embossing Tool Setter: Von Griffin M.D. Performed By: #### S #### [facility] CLIA [id number] [address] [place] [address] [place] GROSS DESCRIPTION Normal [facility] Comment on above: Order Comment: Speci men Type: TISSUE SPECIMEN [facility]ing Facility: [facility] Address: [address] [place] [address] Result Comment: A. C olon, Transverse, Polyp Received in formalin are multiple pieces of rich, soft tissue aggregating to 1.8 x 0.3 x 0.2 cm. Totally submitted in one cassette. Gross examination performed at [facility], [address] [place] [address] JT 12/08/2023 2:14 AM Performed By: #### S #### [facility] CLIA [id number] [address] [facility] [address] [address] [place] ANCAon 10-04-2023 Atypical pANCA <1:20 Normal Neg:<1:20 [facility] Comment on above: Result Comment: The atypical pANCA pattern has been observed in a significant percentage of patients with ulcerative colitis, primary sclerosing cholangitis and autoimmune hepatitis. Performed By: #### L 100.0100, L501.0900, L500.4100, L500.4050 #### [facility] [address] [place], [address] Cytoplasmic Ab <1:20 Normal Neg:<1:20 [facility] Comment on above: Performed By: #### L 100.0100, L501.0900, L500.4100, L500.4050 #### [facility] [address] [place], [address] Perinuclear Ab. <1:20 Normal Neg:<1:20 [facility] Comment on above: Result Comment: The presence of positive fluorescence exhibiting P-ANCA or C-ANCA patterns alone is not specific for the diagnosis of Milagro's Granulomatosis (WG) or microscopic polyangiitis. Decisions about treatment should not be based solely on ANCA IFA results. The International ANCA Group Consensus recommends follow up testing of positive sera with both MS- 3 and MPO-ANCA enzyme immunoassays. As many as 5% serum samples are positive only by EIA. Ref. AM J Clin Pathol 1999;111:507-513. Performed By: #### L 100.0100, L501.0900, L500.4100, L500.4050 #### [facility] [address] [place], [address] Anti-Glomerular Basement Mem bon 10-04-2023 ANTI-GLOM BM Ab < 0.2 Normal 0.0-0.9 [facility] Comment on above: Result Comment: Perf ormed at: - [facility] [address] [id number] [employer] Bar[employer] Attendant: Bertram Jernigan PhD, Phone: [phone] Performed at: - [facility] [address] [id number] [employer] Attendant: Bharathi Tomlinson MD, Phone: [phone] Performed By: #### L 100.0100, L501.0900, L500.4100, L500.4050 #### [facility] [address] [place], [address] Complement C3on 10-04-2023 COMP C3 151 mg/dL Normal 82-167 [facility] Comment on above: Performed By: #### L 3100.5500, L501.0900, L3100.5800, L3100.5700, L3400.4200, L3100.3450, L3300.1200, L500.3600 #### [facility] [address] [place], [address] Complement C4on 10-04-2023 COMPLEMENT, C4 23 mg/dL Normal 12-38 [facility] Comment on above: Performed By: #### L 100.0100, L501.0900, L500.4100, L500.4050 #### [facility] [address] [place], [address] Protein Electroph, Son 10-03 Albumin [Mass/Vol] 3.5 g/dL Normal 2.9-4.4 [facility] Comment on above: Performed By: #### L 3100.5500, L501.0900, L3100.5800, L3100.5700, L3400.4200, L3100.3450, L3300.1200, L500.3600 #### [facility] [address] [place], [address] Albumin/Globulin [Mass ratio] 1.1 {ratio} Normal 0.7-1.7 [facility] Comment on above: Performed By: #### L 3100.5500, L501.0900, L3100.5800, L3100.5700, L3400.4200, L3100.3450, L3300.1200, L500.3600 #### [facility] [address] [place], [address] ALPHA-1 GLOBUL 0.3 g/dL Normal 0.0-0.4 [facility] Comment on above: Performed By: #### L 3100.5500, L501.0900, L3100.5800, L3100.5700, L3400.4200, L3100.3450, L3300.1200, L500.3600 #### [facility] [address] [place], [address] ALPHA-2 GLOBUL 0.7 g/dL Normal 0.4-1.0 [facility] Comment on above: Performed By: #### L 3100.5500, L501.0900, L3100.5800, L3100.5700, L3400.4200, L3100.3450, L3300.1200, L500.3600 #### [facility] [address] [place], [address] BETA GLOBULIN 1.1 g/dL Normal 0.7-1.3 [facility] Comment on above: Performed By: #### L 3100.5500, L501.0900, L3100.5800, L3100.5700, L3400.4200, L3100.3450, L3300.1200, L500.3600 #### [facility] [address] [place], [address] GAMMA GLOBULIN 1.0 g/dL Normal 0.4-1.8 [facility] Comment on above: Performed By: #### L 3100.5500, L501.0900, L3100.5800, L3100.5700, L3400.4200, L3100.3450, L3300.1200, L500.3600 #### [facility] [address] [place], [place], [id number] (978) Globulin (S) [Mass/Vol] 3.1 g/dL Normal 2.2-3.9 [facility] Comment on above: Performed By: #### L 3100.5500, L501.0900, L3100.5800, L3100.5700, L3400.4200, L3100.3450, L3300.1200, L500.3600 #### [facility] [address] [place], [address] INTERPRETATION Comment Normal . [facility] Comment on above: Result Comment: Prot ein electrophoresis scan will follow via computer, mail, or reforestation worker delivery. Performed By: #### L 3100.5500, L501.0900, L3100.5800, L3100.5700, L3400.4200, L3100.3450, L3300.1200, L500.3600 #### [facility] [address] [place], [address] M-SPIKE Not Observed Normal Not Observed [facility] Comment on above: Performed By: #### L 3100.5500, L501.0900, L3100.5800, L3100.5700, L3400.4200, L3100.3450, L3300.1200, L500.3600 #### [facility] [address] [place], [address] NOTE: Comment Normal . [facility] Comment on above: Result Comment: The SPE pattern appears unremarkable. Evidence of monoclonal protein is not apparent. Performed By: #### L 3100.5500, L501.0900, L3100.5800, L3100.5700, L3400.4200, L3100.3450, L3300.1200, L500.3600 #### [facility] [address] [place], [address] Protein [Mass/Vol] 6.6 g/dL Normal 6.0-8.5 [facility] Comment on above: Performed By: #### L 3100.5500, L501.0900, L3100.5800, L3100.5700, L3400.4200, L3100.3450, L3300.1200, L500.3600 #### [facility] [address] [place], [address] Anti-dsDNA Abon 10-01-2023 ANTI-DNA (DS)AB 6 IU/mL Normal 0-9 [facility] Comment on above: Result Comment: Nega tive <5 Equivocal 5 - 9 Positive >9 Performed at: [address] [id number] [employer] Attendant: Bertram Jernigan PhD, Phone: [phone] Performed By: #### L 3100.5500, L501.0900, L3100.5800, L3100.5700, L3400.4200, L3100.3450, L3300.1200, L500.3600 #### [facility] [address] [place], [place], [address] Protein+Creatinine Ratio,Uri neon 09-29-2023 PROT:CRE RATIO 99 mg/g CRE Normal 0-200 [facility] Comment on above: Performed By: #### L 3100.5500, L501.0900, L3100.5800, L3100.5700, L3400.4200, L3100.3450, L3300.1200, L500.3600 #### [facility] [address] [place], [address] Protein (U) [Mass/Vol] 15.7 mg/dL High <11.9 [facility] Comment on above: Performed By: #### L 3100.5500, L501.0900, L3100.5800, L3100.5700, L3400.4200, L3100.3450, L3300.1200, L500.3600 #### [facility] [address] [place], [address] UR CREAT 158.00 mg/dL Normal NO RANGE EST. [facility] Comment on above: Performed By: #### L 3100.5500, L501.0900, L3100.5800, L3100.5700, L3400.4200, L3100.3450, L3300.1200, L500.3600 #### [facility] [address] [place], [address] Renal Profileon 09-29-2023 Albumin [Mass/Vol] 3.4 g/dL Normal 3.2-5.0 [facility] Comment on above: Performed By: #### L 3100.5500, L501.0900, L3100.5800, L3100.5700, L3400.4200, L3100.3450, L3300.1200, L500.3600 #### [facility] [address] [place], [address] BUN/CRE 26.6 RATIO High 10-20 [facility] Comment on above: Performed By: #### L 3100.5500, L501.0900, L3100.5800, L3100.5700, L3400.4200, L3100.3450, L3300.1200, L500.3600 #### [facility] [address] [place], [address] CA,Total 9.9 mg/dL Normal 8.5-10.1 [facility] Comment on above: Performed By: #### L 3100.5500, L501.0900, L3100.5800, L3100.5700, L3400.4200, L3100.3450, L3300.1200, L500.3600 #### [facility] [address] [place], [address] Chloride [Moles/Vol] 106 mmol/L Normal 98-107 [facility] Comment on above: Performed By: #### L 3100.5500, L501.0900, L3100.5800, L3100.5700, L3400.4200, L3100.3450, L3300.1200, L500.3600 #### [facility] [address] [place], [address] CO2 [Moles/Vol] 29.0 mmol/L Normal 21.0-32.0 [facility] Comment on above: Performed By: #### L 3100.5500, L501.0900, L3100.5800, L3100.5700, L3400.4200, L3100.3450, L3300.1200, L500.3600 #### [facility] [address] [place], [address] Creatinine [Mass/Vol] 2.14 mg/dL High 0.70-1.30 [facility] Comment on above: Result Comment: The validity of the calculated GFR GFRAA in patients over 70 years has not been determined. Clinical correlation is essential. Performed By: #### L 3100.5500, L501.0900, L3100.5800, L3100.5700, L3400.4200, L3100.3450, L3300.1200, L500.3600 #### [facility] [address] [place], [address] EST GFR - AA 39 mL/min Low >60 [facility] Comment on above: Result Comment: Afri can Colombian GFR Calc Performed By: #### L 3100.5500, L501.0900, L3100.5800, L3100.5700, L3400.4200, L3100.3450, L3300.1200, L500.3600 #### [facility] [address] [place], [address] GFR/1.73 sq M.predicted among non-blacks MDRD (S/P/Bld) [Vol rate/Area] 32 mL/min/{1.73_m2} Low >60 [facility] Comment on above: Result Comment: Non- GFR Calc Performed By: #### L 3100.5500, L501.0900, L3100.5800, L3100.5700, L3400.4200, L3100.3450, L3300.1200, L500.3600 #### [facility] [address] [place], [address] Glucose [Mass/Vol] 146 mg/dL High 74-106 [facility] Comment on above: Result Comment: Fast ing Glucose result greater than or equal to 126 mg/dL suggests DIABETES MELLITUS per A.D.A. criteria. Performed By: #### L 3100.5500, L501.0900, L3100.5800, L3100.5700, L3400.4200, L3100.3450, L3300.1200, L500.3600 #### [facility] [address] [place], [address] Phosphate [Mass/Vol] 3.6 mg/dL Normal 2.5-4.9 [facility] Comment on above: Performed By: #### L 3100.5500, L501.0900, L3100.5800, L3100.5700, L3400.4200, L3100.3450, L3300.1200, L500.3600 #### [facility] [address] [place], [address] Potassium [Moles/Vol] 5.1 mmol/L Normal 3.5-5.1 [facility] Comment on above: Performed By: #### L 3100.5500, L501.0900, L3100.5800, L3100.5700, L3400.4200, L3100.3450, L3300.1200, L500.3600 #### [facility] [address] [place], [address] Sodium [Moles/Vol] 139 mmol/L Normal 136-145 [facility] Comment on above: Performed By: #### L 3100.5500, L501.0900, L3100.5800, L3100.5700, L3400.4200, L3100.3450, L3300.1200, L500.3600 #### [facility] [address] [place], [address] Urea nitrogen [Mass/Vol] 57 mg/dL High 09-15 [facility] Comment on above: Performed By: #### L 3100.5500, L501.0900, L3100.5800, L3100.5700, L3400.4200, L3100.3450, L3300.1200, L500.3600 #### [facility] [address] [place], [address] Kidney and Bladderon 024 Kidney and Bladder [facility] Imaging Services [address] [place] [address] Kidney and Bladder MR#: [id number] Acct: [id number] Name: MANAS HAWKINS No Rep #: [id number] : 1950 M 73 From: Pelon mares MD PCP: Dr. Babita Arndt MD Status: [facility] Study: Kidney and Bladder Date of Exam: 09/24/23 Exam# [id number] Ordering Dr: Stephanie Menjivar MD [id number] STUDY: RENAL ULTRASOUND - COMPLETE REASON FOR EXAM: Male, 73 years old. CKD3 TECHNIQUE: Ultrasound evaluation of the kidneys was performed with real-time and static gordon-scale imaging. COMPARISON: Comparison is made with prior study October 02, 2020. FINDINGS: RIGHT KIDNEY: Normal location of the right kidney, which is normal in size. The right kidney measures 10.9 cm x 5 cm x 5.1 cm. There is a normal cortex of the right kidney. The renal cortex measures 1.3 cm. There is no right renal mass or cyst. 2. Nonobstructive intrarenal calculi. The largest calculus measures 6 mm x 6 mm x 3 mm. There is no right hydronephrosis. DISTAL RIGHT URETER: There is non-visualization of the distal right ureter. There is no demonstrated right ureterovesical junction calculus. There is a visualized right ureteral jet. LEFT KIDNEY: Normal location of the left kidney, which is normal in size. The left kidney measures 14.1 cm x 6.1 cm x 6.8 cm. There is a normal cortex of the left kidney. The renal cortex measures 1.9 cm. There is no left renal mass or cyst. There is a 4 mm x 3 mm x 3 mm nonobstructive intrarenal calculus. There is no left hydronephrosis. DISTAL LEFT URETER: There is non-visualization of the distal left ureter. There is no demonstrated left ureterovesical junction calculus. There is a visualized left ureteral jet. BLADDER: The distended urinary bladder has a volume of 145 ml. There is a normal wall thickness of the distended urinary bladder. There is no demonstrated mass within the urinary bladder. There are no demonstrated bladder calculi. US/Kidney and Bladder IMPRESSION: There are small bilateral nonobstructive intrarenal calculi. Electronically Signed: Pelon Ramon MD at 15:04 EDT , CC: Dr. Babita Arndt MD; Dr. Stephanie Menjivar MD Ingredient Scaler: Signed Normal [facility] CNOVon 08-23-2023 CNOV Office Visit (GENSWS) MANAS HAWKINS ([id number]) 1950 M Date Time Provider Department 08/23/23 12:00 PM DIMITRYROBERTOKARIEEITAN DELGADO During your visit today, we recorded the following information about you: Temperature Pulse Blood pressure Weight 97.5 degrees 85/minute 142/78 114.7 kg Height 1.854 m Karie Moraes APRN.CNP 08/25/2023 9:03 AM Signed HISTORY AND PHYSICAL Manas Hawkins : 1950 REFERRING PHYSICIAN: No referring provider defined for this encounter. CHIEF COMPLAINT: Patient presents with: Consult: Screening for colon cancer HPI: Manas is a 73 year old male referred for endoscopy. Manas notes due for screening colonoscopy. Patient denies any change in bowel habits, weight changes, blood in stools, black tarry stools or abdominal pain. Denies family history of colon issues. Manas notes no upper GI complaints. Manas has not undergone prior endoscopy. He refers he did a barium enema in the . He also has history of a colectomy with colostomy and reversal d/t diverticulitis in the late . There is a date on external records of colonoscopy in 1996 but no further information. Manas was unable to confirm his medical history and medications. He states he has a hx of HTN and high cholesterol. Records received from PCP include hx of CKD stage 3 and diabetes Last GFR on 08/05/23 was 32 and creatinine was 2.17 No current outpatient medications on file. No current facility-administere d medications for this visit. ALLERGIES: Percocet [Oxycodone-Acetamino phen] PAST MEDICAL HISTORY Diagnosis Date Diverticulitis Essential hypertension History of hernia repair Macular degeneration Mixed hyperlipidemia PAST SURGICAL HISTORY Procedure Laterality Date BOWEL RESECTION HX 1995 had colectomy for a while COLONOSCOPY per pt late REPAIR EPIGASTRIC HERNIA,REDUC FAMILY HISTORY Problem Relation Age of Onset Breast Cancer Mother Social History Tobacco Use Smoking status: Every Day Types: Cigarettes Smokeless tobacco: Never Vaping Use Vaping Use: Never used Substance Use Topics Alcohol use: Not Currently Comment: hasn't had a drink 7-9 years Drug use: Never REVIEW OF SYMPTOMS: REVIEW OF SYSTEMS: General: The patient denies fatigue, denies weight loss, denies weight gain, denies feeling hot, and feelings of cold. Eyes: The patient denies glaucoma, + eye injury/surgery-catar acts, denies glasses or contacts. Cardiovascular: The patient denies chest pain, denies heart disease, + high blood pressure, + high cholesterol, and denies poor circulation. Respiratory: The patient denies tuberculosis, denies pneumonia, denies frequent cough, denies shortness of breath, and denies coughing up blood. Gastrointestinal: The patient denies difficulty swallowing, denies acid reflux, denies ulcers, denies jaundice/hepatitis, denies gallbladder problems, denies vomiting, denies black or tarry stools, denies hemorrhoids, denies bleeding from rectum, denies diverticulitis, denies constipation, denies diarrhea, denies loss of stool control, and + hernia umbilical repair. Neurologic: The patient denies a history of epilepsy/convulsions , denies headaches, denies head/spinal injuries, and denies stroke/TIA. Endocrine: The patient denies thyroid disorders, denies diabetes, and denies hormonal problems. Hematologic: The patient denies a history of bruising, denies bleeding, and denies anemia. Infections: The patient denies a history of measles and mumps, denies rheumatic fever, and denies sexually transmitted diseases. PHYSICAL EXAMINATION: General: The patient is 73 year old, male well nourished, well hydrated in no acute distress. The patient is oriented to time, place, and person. VITALS: Blood pressure 142/78, pulse 85, temperature 36.4 ?C (97.5 ?F), height 185.4 cm (6' 1), weight 114.7 kg (252 lb 12.8 oz), SpO2 100%. Body mass index is 33.35 kg/m?. HEENT: Normal cephalic, ataumatic, pupils are equally round, sclera are anicteric, mucous membranes are moist, oropharynx is clear. Neck has no masses, asymmetry or lymphadenopathy. Respiratory: Clear to auscultation and percussion. Normal respiratory excursion and pattern. Cardiac: Examination is regular rate and rhythm. Normal S1/S2 Abdominal exam: Soft, nontender, with no palpable masses. No hepatosplenomegaly. No palpable hernias. Extremities: no clubbing, cyanosis or edema. No adenopathy. LABORATORY VALUES: As Noted RADIOLOGIC STUDIES: As Noted Assessment IMPRESSION: screen for colon cancer PLAN: I have reviewed my findings with the surgeon. Will plan for lower endoscopy. We discussed the risks and benefits of the planned endoscopy. I have informed the patient that complications can occur including failure to complete the endoscopy and perforation. Manas had the (more content not included)... Normal [facility] CNPNon 08-23-2023 CNPN Telephone (GENSWS) MANAS HAWKINS ([id number]) 1950 M Date Time Provider Department 08/23/23 KARIE MORAES GENMIGEL During your visit today, we recorded the following information about you: Promise Castro LPN 08/23/2023 1:54 PM Signed Faxed [facility] for medical records, faxed confirmed. Promise Castro LPN August 23, 2023 1:54 PM Allergies As of Date: 08/23/2023 Noted Allergy Reaction PERCOCET (OXYCODONE-ACETAMINO PHEN)08/23/2023 8 - GI Upset Comments: Patient states he gets sick Date Reviewed: 08/23/2023 Reviewed by: Karie Moraes APRN.PRECISION AGRICULTURE SPECIALIST - Fully Assessed Problem List As Of Date 08/23/2023 Noted Resolved Essential hypertension [I10] 08/23/2023 Macular degeneration [H35.30] 08/23/2023 Mixed hyperlipidemia [E78.2] 08/23/2023 Encounter Status:Closed by PROMISE CASTRO on 08/23/23 Normal [facility] CBC W/Diff, Automatedon 06-0 Absolute Lymph 2.25 X10 3/uL Normal 0.83-4.51 [facility] Comment on above: Performed By: #### L 100.0100, L501.0900, L500.4100, L500.4050 #### [facility] [address] [place], [address] Absolute Neut 4.4 X10 3/uL Normal 2.0-7.7 [facility] Comment on above: Performed By: #### L 100.0100, L501.0900, L500.4100, L500.4050 #### [facility] [address] [place], [address] Basophils/100 WBC (Bld) 0.6 % Normal 0-1 [facility] Comment on above: Performed By: #### L 100.0100, L501.0900, L500.4100, L500.4050 #### [facility] [address] [place], [address] Eosinophils/100 WBC (Bld) 4.7 % Normal 0-5 [facility] Comment on above: Performed By: #### L 100.0100, L501.0900, L500.4100, L500.4050 #### [facility] [address] [place], [address] Erythrocyte distribution width (RBC) [Ratio] 13.2 % Normal 11.6-14.6 [facility] Comment on above: Performed By: #### L 100.0100, L501.0900, L500.4100, L500.4050 #### [facility] [address] [place], [address] Hematocrit (Bld) [Volume fraction] 43.8 % Normal 40-54 [facility] Comment on above: Performed By: #### L 100.0100, L501.0900, L500.4100, L500.4050 #### [facility] [address] [place], [address] Hemoglobin (Bld) [Mass/Vol] 13.7 g/dL Normal 13.0-16.5 [facility] Comment on above: Performed By: #### L 100.0100, L501.0900, L500.4100, L500.4050 #### [facility] [address] [place], [address] IG% 0.500 Normal 0.0-0.9 [facility] Comment on above: Result Comment: IG% - Immature Granulocytes (promyelocytes, myelocytes and metamyelocytes) > 1% indicates that a LEFT SHIFT is Present. Performed By: #### L 100.0100, L501.0900, L500.4100, L500.4050 #### [facility] [address] [place], [address] Lymphocytes/100 WBC (Bld) 28.4 % Normal 19-41 [facility] Comment on above: Performed By: #### L 100.0100, L501.0900, L500.4100, L500.4050 #### [facility] [address] [place], [address] MCH (RBC) [Entitic mass] 31.8 pg Normal 27.0-32.0 [facility] Comment on above: Performed By: #### L 100.0100, L501.0900, L500.4100, L500.4050 #### [facility] [address] [place], [address] MCHC (RBC) [Mass/Vol] 31.3 g/dL Low 32-36 [facility] Comment on above: Performed By: #### L 100.0100, L501.0900, L500.4100, L500.4050 #### [facility] [address] [place], [address] MCV (RBC) [Entitic vol] 101.6 fL High 80-94 [facility] Comment on above: Performed By: #### L 100.0100, L501.0900, L500.4100, L500.4050 #### [facility] [address] [place], [address] Monocytes/100 WBC (Bld) 10.0 % Normal 0-10 [facility] Comment on above: Performed By: #### L 100.0100, L501.0900, L500.4100, L500.4050 #### [facility] [address] [place], [address] Neutrophils/100 WBC (Bld) 55.8 % Normal 47-70 [facility] Comment on above: Performed By: #### L 100.0100, L501.0900, L500.4100, L500.4050 #### [facility] [address] [place], [address] Nucleated RBC (Bld) [#/Vol] 0 10*3/uL Normal 0-5 [facility] Comment on above: Performed By: #### L 100.0100, L501.0900, L500.4100, L500.4050 #### [facility] [address] [place], [address] Platelet mean volume (Bld) [Entitic vol] 10.5 fL Normal 6.2-12.0 [facility] Comment on above: Performed By: #### L 100.0100, L501.0900, L500.4100, L500.4050 #### [facility] [address] [place], [address] Platelets (Bld) [#/Vol] 285 10*3/uL Normal 150-450 [facility] Comment on above: Performed By: #### L 100.0100, L501.0900, L500.4100, L500.4050 #### [facility] [address] [place], [address] RBC (Bld) [#/Vol] 4.31 10*6/uL Low 4.6-6.2 [facility] Comment on above: Performed By: #### L 100.0100, L501.0900, L500.4100, L500.4050 #### [facility] [address] [place], [address] RDW SD 49.6 fl High 35.1-43.9 [facility] Comment on above: Performed By: #### L 100.0100, L501.0900, L500.4100, L500.4050 #### [facility] [address] [place], [address] WBC (Bld) [#/Vol] 7.9 10*3/uL Normal 4.4-11.0 [facility] Comment on above: Performed By: #### L 100.0100, L501.0900, L500.4100, L500.4050 #### [facility] [address] [place], [address] Comprehensive Metabolic [facility] 08-05-2023 Albumin [Mass/Vol] 3.7 g/dL Normal 3.2-5.0 [facility] Comment on above: Performed By: #### L 100.0100, L501.0900, L500.4100, L500.4050 #### [facility] [address] [place], [address] Albumin/Globulin [Mass ratio] 1.0 {ratio} Normal 0.9-2.4 [facility] Comment on above: Performed By: #### L 100.0100, L501.0900, L500.4100, L500.4050 #### [facility] [address] [place], [address] ALK P 50 U/L Normal 45-117 [facility] Comment on above: Performed By: #### L 100.0100, L501.0900, L500.4100, L500.4050 #### [facility] [address] [place], [address] ALT [Catalytic activity/Vol] 24 U/L Normal 16-61 [facility] Comment on above: Performed By: #### L 100.0100, L501.0900, L500.4100, L500.4050 #### [facility] [address] [place], [address] AST [Catalytic activity/Vol] 26 U/L Normal 15-37 [facility] Comment on above: Performed By: #### L 100.0100, L501.0900, L500.4100, L500.4050 #### [facility] [address] [place], [address] Bilirubin [Mass/Vol] 0.70 mg/dL Normal 0.20-1.00 [facility] Comment on above: Result Comment: For patients on eltrombopag therapy, use of Dimension [place] TBIL is not recommended. Performed By: #### L 100.0100, L501.0900, L500.4100, L500.4050 #### [facility] [address] [place], [address] BUN/CRE 25.3 RATIO High 10-20 [facility] Comment on above: Performed By: #### L 100.0100, L501.0900, L500.4100, L500.4050 #### [facility] [address] [place], [address] CA,Total 9.5 mg/dL Normal 8.5-10.1 [facility] Comment on above: Performed By: #### L 100.0100, L501.0900, L500.4100, L500.4050 #### [facility] [address] [place], [address] Chloride [Moles/Vol] 111 mmol/L High 98-107 [facility] Comment on above: Performed By: #### L 100.0100, L501.0900, L500.4100, L500.4050 #### [facility] [address] [place], [address] CO2 [Moles/Vol] 23.0 mmol/L Normal 21.0-32.0 [facility] Comment on above: Performed By: #### L 100.0100, L501.0900, L500.4100, L500.4050 #### [facility] [address] [place], [address] Creatinine [Mass/Vol] 2.17 mg/dL High 0.70-1.30 [facility] Comment on above: Result Comment: The validity of the calculated GFR GFRAA in patients over 70 years has not been determined. Clinical correlation is essential. Performed By: #### L 100.0100, L501.0900, L500.4100, L500.4050 #### [facility] [address] [place], [address] EST GFR - AA 39 mL/min Low >60 [facility] Comment on above: Result Comment: Afri can Colombian GFR Calc Performed By: #### L 100.0100, L501.0900, L500.4100, L500.4050 #### [facility] [address] [place], [address] GAP 4 Low 5-15 [facility] Comment on above: Performed By: #### L 100.0100, L501.0900, L500.4100, L500.4050 #### [facility] [address] [place], [address] GFR/1.73 sq M.predicted among non-blacks MDRD (S/P/Bld) [Vol rate/Area] 32 mL/min/{1.73_m2} Low >60 [facility] Comment on above: Result Comment: Non- GFR Calc Performed By: #### L 100.0100, L501.0900, L500.4100, L500.4050 #### [facility] [address] [place], [address] Globulin (S) [Mass/Vol] 3.8 g/dL Normal 2.2-4.2 [facility] Comment on above: Performed By: #### L 100.0100, L501.0900, L500.4100, L500.4050 #### [facility] [address] [place], [address] Glucose [Mass/Vol] 99 mg/dL Normal 74-106 [facility] Comment on above: Performed By: #### L 100.0100, L501.0900, L500.4100, L500.4050 #### [facility] [address] [place], [address] Potassium [Moles/Vol] 5.1 mmol/L Normal 3.5-5.1 [facility] Comment on above: Performed By: #### L 100.0100, L501.0900, L500.4100, L500.4050 #### [facility] [address] [place], [address] Sodium [Moles/Vol] 138 mmol/L Normal 136-145 [facility] Comment on above: Performed By: #### L 100.0100, L501.0900, L500.4100, L500.4050 #### [facility] [address] [place], [address] T PROT 7.5 g/dL Normal 6.4-8.2 [facility] Comment on above: Performed By: #### L 100.0100, L501.0900, L500.4100, L500.4050 #### [facility] [address] [place], [address] Urea nitrogen [Mass/Vol] 55 mg/dL High 7-18 [facility] Comment on above: Performed By: #### L 100.0100, L501.0900, L500.4100, L500.4050 #### [facility] [address] [place], [address] Lipid Profileon 08-05-2023 Cholesterol [Mass/Vol] 140 mg/dL Normal 200 [facility] Comment on above: Result Comment: <200 mg/dL Desirable 200-240 mg/dL Borderline >240 mg/dL High Risk Performed By: #### L 100.0100, L501.0900, L500.4100, L500.4050 #### [facility] [address] [place], [address] Cholesterol in HDL [Mass/Vol] 30 mg/dL Low [facility] Comment on above: Result Comment: The drugs N-Acetylcysteine and Metamizole may falsely depress this assay. Reference Range HDL <40 mg/dL Low HDL Cholesterol HDL >or= 60 mg/dL High HDL Cholesterol Performed By: #### L 100.0100, L501.0900, L500.4100, L500.4050 #### [facility] [address] [place], [address] Cholesterol in LDL [Mass/Vol] 82 mg/dL Normal 0-130 [facility] Comment on above: Performed By: #### L 100.0100, L501.0900, L500.4100, L500.4050 #### [facility] [address] [place], [address] Cholesterol in VLDL [Mass/Vol] 28 mg/dL Normal 5-40 [facility] Comment on above: Performed By: #### L 100.0100, L501.0900, L500.4100, L500.4050 #### [facility] [address] [place], [address] Triglyceride [Mass/Vol] 140 mg/dL Normal [facility] Comment on above: Result Comment: The drugs N-Acetylcysteine and Metamizole may falsely depress this assay. Serum Triglycerides Reference Interval Normal <150 mg/dL Borderline high 150 - 199 mg/dL High 200 - 499 mg/dL Very High > or = 500 mg/dL Performed By: #### L 100.0100, L501.0900, L500.4100, L500.4050 #### [facility] [address] [place], [address] Protein+Creatinine Ratio,Uri neon 08-05-2023 PROT:CRE RATIO 99 mg/g CRE Normal 0-200 [facility] Comment on above: Performed By: #### L 100.0100, L501.0900, L500.4100, L500.4050 #### [facility] [address] [place], [address] Protein (U) [Mass/Vol] 12.6 mg/dL High <11.9 [facility] Comment on above: Performed By: #### L 100.0100, L501.0900, L500.4100, L500.4050 #### [facility] [address] [place], [address] UR CREAT 127.00 mg/dL Normal NO RANGE EST. [facility] Comment on above: Performed By: #### L 100.0100, L501.0900, L500.4100, L500.4050 #### [facility] [address] [place], [address] Vital Signs Date Time Vital Sign Value Performing Clinician Andres shepherd 12-15-2023 13:22-0400 Diastolic blood pressure 79 mm[Hg] Karie Moraes APRN.PRECISION AGRICULTURE SPECIALIST Work Phone: [facility] 12-15-2023 13:22-0400 Heart rate 83 /min Karie Moraes APRN.PRECISION AGRICULTURE SPECIALIST Work Phone: [facility] 12-15-2023 13:22-0400 SaO2% (BldA) [Mass fraction] 94 % Karie Moraes APRN.PRECISION AGRICULTURE SPECIALIST Work Phone: [facility] 12-15-2023 13:22-0400 Systolic blood pressure 182 mm[Hg] Karie Dimitry FARMWORKER [employer].PRECISION AGRICULTURE SPECIALIST Work Phone: [facility] 12-07-2023 13:28040 Diastolic blood pressure 81 mm[Hg] Rhiannon Pelletier MD Work Phone: [facility] 12-07-2023 13:28040 Heart rate 89 /min Rhiannon Pelletier MD Work Phone: [facility] 12-07-2023 13:280400 SaO2% (BldA) [Mass fraction] 92 % Rhiannon Pelletier MD Work Phone: [facility] 12-07-2023 13:28040 Systolic blood pressure 174 mm[Hg] Rhiannon Pelletier MD Work Phone: [facility] 12-07-2023 12:28040 Respiratory rate 16 /min Rhiannon Pelletier MD Work Phone: [facility] 12-07-2023 12:130400 Body mass index (BMI) [Ratio] 33.36 kg/m2 Rhiannon Pelletier MD Work Phone: [facility] 12-07-2023 12:130400 Body temperature 97.2 [degF] Rhiannon Pelletier MD Work Phone: [facility] 12-07-2023 12:130400 Body weight 114.7 kg Rhiannon Pelletier MD Work Phone: [facility] 08-23-2023 12:14040 Body height 185.4 cm Karie Dimitry [employer].PRECISION AGRICULTURE SPECIALIST Work Phone: [facility] 08-23-2023 12:140400 Body mass index (BMI) [Ratio] 33.35 kg/m2 Karie Dimitry [employer]WORK[employer].PRECISION AGRICULTURE SPECIALIST Work Phone: [facility] 08-23-2023 12:140400 Body temperature 97.5 [degF] Karie Dimitry [employer]WORK[employer].PRECISION AGRICULTURE SPECIALIST Work Phone: [facility] 08-23-2023 12:140400 Body weight 114.67 kg Karie Dimitry [employer]WORK[employer].PRECISION AGRICULTURE SPECIALIST Work Phone: [facility] 08-23-2023 12:14-0400 Diastolic blood pressure 78 mm[Hg] Karie Moraes [employer]WORK[employer].PRECISION AGRICULTURE SPECIALIST Work Phone: [facility] 08-23-2023 12:14-0400 Heart rate 85 /min Karie Moraes [employer]WORK[employer].PRECISION AGRICULTURE SPECIALIST Work Phone: [facility] 08-23-2023 12:14-0400 SaO2% (BldA) [Mass fraction] 100 % Karie Moraes [employer]WORK[employer].PRECISION AGRICULTURE SPECIALIST Work Phone: [facility] 08-23-2023 12:14-0400 Systolic blood pressure 142 mm[Hg] Karie Farleyir [employer]WORK[employer].PRECISION AGRICULTURE SPECIALIST Work Phone: [facility] Encounters Encounter Date Encounter Type Care Provider Facility Start: 12-15-2023 End: 12-15-2023 ambulatory RHIANNON PELLETIER Facility:[facility] Start: 12-15-2023 End: 12-15-2023 Patient encounter procedure Karie Moraes [employer].PRECISION AGRICULTURE SPECIALIST Work Phone: General Surgery Comment on above: Sessile serrated cammy yp of colon (Primary Dx) Start: 12-07-2023 End: 12-07-2023 ambulatory RHIANNON PELLETIER Facility:[facility] Start: 12-07-2023 End: 12-07-2023 Subsequent hospital visit by physician Rhiannon Pelletier MD Work Phone: Ambulatory Surgery Comment on above: Screen for colon can cer [Z12.11] Start: 09-29-2023 End: 09-29-[address] [facility] Facility:[facility] Start: 09-24-2023 End: 09-24-[address] [facility] Facility:[facility] Start: 08-23-2023 Telephone encounter Karie Moraes APRN.PRECISION AGRICULTURE SPECIALIST Work Phone: General Surgery Start: 08-23-2023 End: 08-23-2023 ambulatory KARIE MORAES Facility:[facility] Start: 08-23-2023 End: 08-23-2023 Patient encounter procedure Karie Moraes [employer].PRECISION A[employer]ICULTURE SPECIALIST Work Phone: General Surgery Comment on above: Screen for colon can cer Start: 08-20-2023 Encounter for genera l adult medical examination without abnormal findings [facility] Start: 08-05-2023 End: 08-05-2023 ambulatory [facility] Facility:[facility] Procedures Date Procedure Procedure Detail Performing Clinician Start: 12-07-2023 Colonoscopy flx dx w /collj spec when pfrmd Karie Moraes [employer]WORK[employer].PRECISION AGRICULTURE SPECIALIST Work Phone: Start: 12-07-2023 SURGICAL PATHOLOGY Blake Pelletier MD Work Phone: Start: 12-07-2023 Colonoscopy Rhiannon Pelletier MD Work Phone: Plan of Treatment Date Care Activity Detail Author Start: 2026 RSV Vaccine (1 - 1-d ose 75+ series) RSV Vaccine (1 - 1-dose 75+ series) [facility] Start: 12-06-2024 Screening for malign ant neoplasm of colon [facility] Start: 12-15-2023 End: 12-15-2023 Patient encounter procedure 12/15/2023 1:30 PM EDT Office Visit General Surgery [address] [place] [id number] Karie Moraes APRN.PRECISION AGRICULTURE SPECIALIST [address] [place] [id number] 12-06 colonoscopy follow up General Surgery Comment on above: 12-06 colonoscopy fo llow up Start: 10-31-2023 Covid-19 Vaccine ( season) Covid-19 Vaccine ( season) [facility] Start: 10-31-2023 Influenza vaccination Influenza Vacc ine (#1) [facility] Start: 09-09-2023 End: 09-09-2023 Patient encounter procedure 09/09/2023 1:15 PM EDT Appointment Ambulatory Surgery [address] [place] [id number] Wali Dickerson MD [address] [place] [address] Screen for colon cancer [Z12.11] Ambulatory Surgery Comment on above: Screen for colon can cer [Z12.11] Start: 03-01-2023 Advance Directive Discussion Advance Directive Discussion [facility] Start: 03-01-2023 Behavioral Health Screening Behavioral Health Screening [facility] Start: 10-30-2022 Covid-19 Vaccine () Covid-19 Vaccine () [facility] Start: 2011 RSV Vaccine (1 - 1-d ose 60+ series) RSV Vaccine (1 - 1-dose 60+ series) [facility] Start: 2001 Shingrix Vaccine (1 of 2) Shingrix Vaccine (1 of 2) [facility] Start: 01-17-1996 Diabetes Screening Diabetes Screenin g [facility] Start: 01-17-1996 Screening for malign ant neoplasm of colon [facility] Start: 1986 Lipid panel Lipid Screening [facility] Start: 1970 Urine microalbumin profile DTaP,Tdap,Td Vaccine (1 - Tdap) [facility] Start: 1969 Annual PCP Team Biologist Aide girish Disease Visit Annual PCP Team Chronic Disease Visit [facility] Start: 1969 Anxiety Screening Anxiety Screening [facility] Start: 1969 BP Controlled (<130/80) BP Controlle d (<130/80) [facility] Start: 1969 Depression Screening Depression Scre ening [facility] Start: 1969 Hepatitis C screening Hepatitis C Sc malena [facility] Start: 1957 Pneumococcal Vaccine : 65+ (1 of 2 - PCV) Pneumococcal Vaccine: 65+ (1 of 2 - PCV) [facility] Start: 1951 Abdominal aortic aneurysm screening Abdominal Aortic Aneurysm Screening [facility] End: 08-24-2024 Screening colonoscopy COLONOSCOPY SCREENING Endoscopy Routine Screen for colon cancer 1 Occurrences starting 08/25/2023 until 08/24/2024 [facility] Work Phone: Comment on above: 1 Occurrences starti ng 08/25/2023 until 08/24/2024 Immunizations Immunization Date Immunization Notes Care Provider Fa elizabeth 01-14-2023 influenza virus vacc ine, unspecified formulation Rhiannon Pelletier MD Work Phone: [facility] Payers Date Payer Category Payer Self-pay 2023 Medicare MMO MEDICARE MMO [employer] HMO [id number] 2023-Present [phone] [address] [place] [address] O [id number] 2023 Medicare [id number] Unknown [id number] Unknown [id number] Unknown [id number] Social History Date Type Detail Facility Start: 08-23-2023 End: 12-15-2023 Tobacco smoking status NHIS Smokes tobacco daily [facility] History of tobacco use Cigarette Smoker [facility] Start: 08-23-2023 End: 12-15-2023 Tobacco use and exposure Smokeless tobacco non-user [facility] Start: 08-23-2023 End: 12-15-2023 Alcohol intake Ex-drinker (finding) [facility] Start: 08-23-2023 End: 12-15-2023 History of Social function [facility] Start: 08-23-2023 End: 12-15-2023 Tobacco use panel [facility] Start: 08-23-2023 Alcohol Comment hasn't had a d rink 7-9 years [facility] Start: 1950 Sex Assigned At Not on file [facility] National Score (1-10 0), lower number is lower risk 60 [facility] Clinical Notes 08-23-2023 to 12-15-2023 Karie Moraes APRN.HERNESTO - 12/15/2023 1:30 PM EDTDischarge Instr - Jt - Jahaira Parks RN - 12/07/2023 1:22 PM ED[facility] Jahaira Parks, ECHO - 12/07/2023 1:22 PM EDT Note Date & Type Note Facility 12-15-2023 History of Presen t illness Narrative FOLLOW UP VISIT - ENDOSCOPY Manas Hawkins 1950 [id number] REFERRING PHYSICIAN: Rhiannon Pelletier [address] [facility] [address] Manas Hawkins is a patient I am following for screening colonoscopy. Dr. Pelletier performed lower endoscopy on 12/07/23. The patient was found to have Impression: - Non-bleeding external and internal hemorrhoids. - One 10 to 12 mm polyp in the transverse colon, removed with a cold biopsy forceps. Resected and retrieved. Pathology demonstrated: FINAL DIAGNOSIS Colon, transverse, polyp, biopsy: - Sessile serrated polyp. The patient notes no complaints since the procedure. VITALS: There were no vitals taken for this visit. General: patient is alert, cooperative, pleasant and in no acute distress On examination, the abdomen is benign. Assessment ASSESSMENT/PLAN: 1. Sessile serrated polyp of colon - ICD9: 211.3, ICD10: D12.6 The operative findings and pathology report were reviewed with the patient, and the patient has had the opportunity to ask questions and have questions answered. If the patient notes any problems or changes in bowel function, the patient should contact me immediately. Otherwise I recommend follow up endoscopy in 3 years. HM updated and recall letter generated. Discussed treatment plan and patient voices understanding. Patient's questions answered appropriately. Medications and potential side effects were discussed and patient voices understanding. Return to the office as scheduled or as needed for worsening/no improvement. Karie Moraes APRN.CNP documented in this encounter [facility] 12-15-2023 Note HNO ID: [id number] Author: KARIE MORAES APRN.CNP Service: ? Author Type: Nurse Practitioner Type: Progress Notes Filed: 12/15/2023 13:37 Note Text: FOLLOW UP VISIT - ENDOSCOPY Manas Hawkins 1950 [id number] REFERRING PHYSICIAN: Rhiannon Pelletier [address] [facility] [address] Manas Hawkins is a patient I am following for screening colonoscopy. Dr. Pelletier performed lower endoscopy on 12/07/23. The patient was found to have Impression: - Non-bleeding external and internal hemorrhoids. - One 10 to 12 mm polyp in the transverse colon, removed with a cold biopsy forceps. Resected and retrieved. Pathology demonstrated: FINAL DIAGNOSIS Colon, transverse, polyp, biopsy: - Sessile serrated polyp. The patient notes no complaints since the procedure. VITALS: There were no vitals taken for this visit. General: patient is alert, cooperative, pleasant and in no acute distress On examination, the abdomen is benign. Assessment ASSESSMENT/PLAN: 1. Sessile serrated polyp of colon - ICD9: 211.3, ICD10: D12.6 The operative findings and pathology report were reviewed with the patient, and the patient has had the opportunity to ask questions and have questions answered. If the patient notes any problems or changes in bowel function, the patient should contact me immediately. Otherwise I recommend follow up endoscopy in 3 years. HM updated and recall letter generated. Discussed treatment plan and patient voices understanding. Patient's questions answered appropriately. Medications and potential side effects were discussed and patient voices understanding. Return to the office as scheduled or as needed for worsening/no improvement. Karie Moraes APRN.PRECISION AGRICULTURE SPECIALIST [facility] 12-07-2023 Note Formatting of this n ote might be different from the original. The patient received a copy of Colonoscopy discharge instructions that contain information for how to contact the physician who performed the procedure and when to seek medical care. [facility] 12-07-2023 Miscellaneous Notes Formattin g of this note might be different from the original. The patient received a copy of Colonoscopy discharge instructions that contain information for how to contact the physician who performed the procedure and when to seek medical care. documented in this encounter [facility] 12-07-2023 Note HNO ID: [id number] Author: JAHAIRA PARKS RN Service: ? Author Type: Registered Nurse Type: Nursing Progress Note Filed: 12/07/2023 13:32 Note Text: SBAR received from Tiffany Torres RN, will assume care of patient at this time. [facility] 12-07-2023 Nurse Note SBAR received from Tiffany Torres RN, will assume care of patient at this time. [facility] 12-07-2023 Nurse Note SBAR received from Tiffany Torres RN, will assume care of patient at this time. documented in this encounter [facility] 12-07-2023 Attending History and physical note UPDATED PROCEDURAL SEDATION HISTORY AND PHYSICAL EXAMINATION SERVICE DATE: 12/07/2023 SERVICE TIME: 12:31 PHYSICAL EXAM MUST BE COMPLETED ON ADMISSION PROCEDURE: colonosocpy, possible biopsies Procedure Indications: screeing for colon cancer The History and Physical (completed in the past 30 days) has been reviewed and the patient has been examined. The contents accurately reflect the patient's condition with the following additions or revisions since the H&P was completed. ASA Class: ASA Class: Patient with mild systemic disease Examination indicates no changes. AIRWAY: Airway Visualization of Uvula: Yes Mouth opening greater than 2 fingerbreadths: Yes Neck Full Range of Motion: Yes LUNGS: Lungs clear to auscultation CARDIAC: Regular rhythm,Regular rate Provisional Diagnosis/Treatment Plan: colonoscopy, possible biopsies Sedation Goal: Moderate This H&P can be found in the Electronic Medical Record . SIGNATURE: Rhiannon Pelletier MD PATIENT NAME: Manas Hawkins DATE: December 07, 2023 TIME: 12:34 PM Source Note - Rhiannon Pelletier MD - 12/07/2023 12:30 PM EDT HISTORY AND PHYSICAL Manas Hawkins 1950 REFERRING PHYSICIAN: Karie Moraes APRN.* CHIEF COMPLAINT: No chief complaint on file. HPI: The patient is a 73 year old male here for screening for colon cancer via colonosocpy, last colonoscopy > 10 y ago PAST MEDICAL HISTORY Diagnosis Date Cataracts, bilateral Chronic renal disease Diabetes mellitus (HCC) Diverticulitis Erectile dysfunction Essential hypertension History of hernia repair History of partial colectomy Macular degeneration Mixed hyperlipidemia PAST SURGICAL HISTORY Procedure Laterality Date BOWEL RESECTION HX 1995 had colectomy for a while COLONOSCOPY per pt late REMV CATARACT EXTRACAP,INSERT LENS REPAIR EPIGASTRIC HERNIA,REDUC Current Outpatient Medications Medication Sig amLODIPine (NORVASC) 10 mg tablet Take 10 mg by mouth once daily. atorvastatin (LIPITOR) 20 mg tablet Take 20 mg by mouth once daily. Tadalafil (CIALIS) 5 mg tablet Take 5 mg by mouth once daily as needed. fenofibrate (LOFIBRA) 134 mg capsule Take 134 mg by mouth daily with breakfast. metoprolol succinate ER (TOPROL XL) 25 mg 24 hr tablet Take 25 mg by mouth once daily. Valsartan-hydroCHLOROthiazide 320-25 mg per tablet Take 1 tablet by mouth once daily. Blood Pressure Monitor 1 Each once daily. omega-3 DHA-EPA (FISH OIL) 1,200 (144-216) mg capsule Take 1 capsule by mouth daily with breakfast. vit C/E/cuperic/zinc/lutein (PRESERVISION LUTEIN ORAL) Take 1 capsule by mouth once daily. cyanocobalamin (VITAMIN B-12) 1,000 mcg tab Take 1,000 mcg by mouth once daily. Current Facility-Administered Medications Medication Dose Route Frequency lidocaine (PF) 10 mg/mL (1 %) 1-2 mg injection (XYLOCAINE) 0.1-0.2 mL INTRADERMAL PRN lactated ringers iv infusion 75 mL/hr INTRAVENOUS CONTINUOUS ALLERGIES: Percocet [Oxycodone-Acetaminophen] PERSONAL HISTORY: Social History Tobacco Use Smoking status: Every Day Current packs/day: 1.00 Average packs/day: 1 pack/day for 15.0 years (15.0 ttl pk-yrs) Types: Cigarettes Smokeless tobacco: Never Vaping Use Vaping status: Never Used Substance Use Topics Alcohol use: Not Currently Comment: hasn't had a drink 7-9 years Drug use: Never FAMILY HISTORY Problem Relation Age of Onset Breast Cancer Mother REVIEW OF SYSTEMS: Denies headaches Denies chest pain Denies shortness of breath PHYSICAL EXAMINATION: General: The patient is 73 year old male, well nourished, well hydrated in no acute distress. The patient is oriented to time, place, and person. VITALS: Blood pressure 198/88, pulse 76, temperature 36.2 C (97.2 F), resp. rate 16, weight 114.7 kg (252 lb 13.9 oz), SpO2 98%. Body mass index is 33.36 kg/m . Head: Normal cephalic, atraumatic Eyes: pupils are equally round, sclera are clear/anicteric Neck is supple with no tracheal deviation Cardiac: normal heart sounds, regular Respiratory: Normal respiratory excursion and pattern. Abdominal exam: benign Extremities: no clubbing, cyanosis or edema. Neuro: non focal Psych: normal mood Assessment IMPRESSION: screening for colon cancer via colonosocpy PLAN: I have discussed the above with the patient. I have offered colonoscopy , possible biopsies I have explained the procedure to the patient. I have counseled the patient as to the risks of the procedure, including but not limited to: infection, bleeding, injury to any intrabdominal organs such as liver/spleen, perforation of the GI tract, inability to complete the procedure, complications of anesthesia, etc. - the patient understands. The patient wishes to proceed. I have answered all questions to the patient s satisfaction and the patient has no further questions. . Rhiannon Pelletier MD [facility] 12-07-2023 History and physical note HISTORY AND PHYSICAL Manas Hawkins 1950 REFERRING PHYSICIAN: Karie Moraes APRN.* CHIEF COMPLAINT: No chief complaint on file. HPI: The patient is a 73 year old male here for screening for colon cancer via colonosocpy, last colonoscopy > 10 y ago PAST MEDICAL HISTORY Diagnosis Date Cataracts, bilateral Chronic renal disease Diabetes mellitus (HCC) Diverticulitis Erectile dysfunction Essential hypertension History of hernia repair History of partial colectomy Macular degeneration Mixed hyperlipidemia PAST SURGICAL HISTORY Procedure Laterality Date BOWEL RESECTION HX 1995 had colectomy for a while COLONOSCOPY per pt late REMV CATARACT EXTRACAP,INSERT LENS REPAIR EPIGASTRIC HERNIA,REDUC Current Outpatient Medications Medication Sig amLODIPine (NORVASC) 10 mg tablet Take 10 mg by mouth once daily. atorvastatin (LIPITOR) 20 mg tablet Take 20 mg by mouth once daily. Tadalafil (CIALIS) 5 mg tablet Take 5 mg by mouth once daily as needed. fenofibrate (LOFIBRA) 134 mg capsule Take 134 mg by mouth daily with breakfast. metoprolol succinate ER (TOPROL XL) 25 mg 24 hr tablet Take 25 mg by mouth once daily. Valsartan-hydroCHLOROthiazide 320-25 mg per tablet Take 1 tablet by mouth once daily. Blood Pressure Monitor 1 Each once daily. omega-3 DHA-EPA (FISH OIL) 1,200 (144-216) mg capsule Take 1 capsule by mouth daily with breakfast. vit C/E/cuperic/zinc/lutein (PRESERVISION LUTEIN ORAL) Take 1 capsule by mouth once daily. cyanocobalamin (VITAMIN B-12) 1,000 mcg tab Take 1,000 mcg by mouth once daily. Current Facility-Administered Medications Medication Dose Route Frequency lidocaine (PF) 10 mg/mL (1 %) 1-2 mg injection (XYLOCAINE) 0.1-0.2 mL INTRADERMAL PRN lactated ringers iv infusion 75 mL/hr INTRAVENOUS CONTINUOUS ALLERGIES: Percocet [Oxycodone-Acetaminophen] PERSONAL HISTORY: Social History Tobacco Use Smoking status: Every Day Current packs/day: 1.00 Average packs/day: 1 pack/day for 15.0 years (15.0 ttl pk-yrs) Types: Cigarettes Smokeless tobacco: Never Vaping Use Vaping status: Never Used Substance Use Topics Alcohol use: Not Currently Comment: hasn't had a drink 7-9 years Drug use: Never FAMILY HISTORY Problem Relation Age of Onset Breast Cancer Mother REVIEW OF SYSTEMS: Denies headaches Denies chest pain Denies shortness of breath PHYSICAL EXAMINATION: General: The patient is 73 year old male, well nourished, well hydrated in no acute distress. The patient is oriented to time, place, and person. VITALS: Blood pressure 198/88, pulse 76, temperature 36.2 C (97.2 F), resp. rate 16, weight 114.7 kg (252 lb 13.9 oz), SpO2 98%. Body mass index is 33.36 kg/m . Head: Normal cephalic, atraumatic Eyes: pupils are equally round, sclera are clear/anicteric Neck is supple with no tracheal deviation Cardiac: normal heart sounds, regular Respiratory: Normal respiratory excursion and pattern. Abdominal exam: benign Extremities: no clubbing, cyanosis or edema. Neuro: non focal Psych: normal mood Assessment IMPRESSION: screening for colon cancer via colonosocpy PLAN: I have discussed the above with the patient. I have offered colonoscopy , possible biopsies I have explained the procedure to the patient. I have counseled the patient as to the risks of the procedure, including but not limited to: infection, bleeding, injury to any intrabdominal organs such as liver/spleen, perforation of the GI tract, inability to complete the procedure, complications of anesthesia, etc. - the patient understands. The patient wishes to proceed. I have answered all questions to the patient s satisfaction and the patient has no further questions. . Rhiannon Pelletier MD [facility] 12-07-2023 History and physical note UPDATED PROCEDURAL SEDATION HISTORY AND PHYSICAL EXAMINATION SERVICE DATE: 12/07/2023 SERVICE TIME: 12:31 PHYSICAL EXAM MUST BE COMPLETED ON ADMISSION PROCEDURE: colonosocpy, possible biopsies Procedure Indications: screeing for colon cancer The History and Physical (completed in the past 30 days) has been reviewed and the patient has been examined. The contents accurately reflect the patient's condition with the following additions or revisions since the H&P was completed. ASA Class: ASA Class: Patient with mild systemic disease Examination indicates no changes. AIRWAY: Airway Visualization of Uvula: Yes Mouth opening greater than 2 fingerbreadths: Yes Neck Full Range of Motion: Yes LUNGS: Lungs clear to auscultation CARDIAC: Regular rhythm,Regular rate Provisional Diagnosis/Treatment Plan: colonoscopy, possible biopsies Sedation Goal: Moderate This H&P can be found in the Electronic Medical Record . SIGNATURE: Rhiannon Pelletier MD PATIENT NAME: Manas Hawkins DATE: December 07, 2023 TIME: 12:34 PM Source Note - Rhiannon Pelletier MD - 12/07/2023 12:30 PM EDT HISTORY AND PHYSICAL Manas Hawkins 1950 REFERRING PHYSICIAN: Karie Moraes APRN.* CHIEF COMPLAINT: No chief complaint on file. HPI: The patient is a 73 year old male here for screening for colon cancer via colonosocpy, last colonoscopy > 10 y ago PAST MEDICAL HISTORY Diagnosis Date Cataracts, bilateral Chronic renal disease Diabetes mellitus (HCC) Diverticulitis Erectile dysfunction Essential hypertension History of hernia repair History of partial colectomy Macular degeneration Mixed hyperlipidemia PAST SURGICAL HISTORY Procedure Laterality Date BOWEL RESECTION HX 1995 had colectomy for a while COLONOSCOPY per pt late REMV CATARACT EXTRACAP,INSERT LENS REPAIR EPIGASTRIC HERNIA,REDUC Current Outpatient Medications Medication Sig amLODIPine (NORVASC) 10 mg tablet Take 10 mg by mouth once daily. atorvastatin (LIPITOR) 20 mg tablet Take 20 mg by mouth once daily. Tadalafil (CIALIS) 5 mg tablet Take 5 mg by mouth once daily as needed. fenofibrate (LOFIBRA) 134 mg capsule Take 134 mg by mouth daily with breakfast. metoprolol succinate ER (TOPROL XL) 25 mg 24 hr tablet Take 25 mg by mouth once daily. Valsartan-hydroCHLOROthiazide 320-25 mg per tablet Take 1 tablet by mouth once daily. Blood Pressure Monitor 1 Each once daily. omega-3 DHA-EPA (FISH OIL) 1,200 (144-216) mg capsule Take 1 capsule by mouth daily with breakfast. vit C/E/cuperic/zinc/lutein (PRESERVISION LUTEIN ORAL) Take 1 capsule by mouth once daily. cyanocobalamin (VITAMIN B-12) 1,000 mcg tab Take 1,000 mcg by mouth once daily. Current Facility-Administered Medications Medication Dose Route Frequency lidocaine (PF) 10 mg/mL (1 %) 1-2 mg injection (XYLOCAINE) 0.1-0.2 mL INTRADERMAL PRN lactated ringers iv infusion 75 mL/hr INTRAVENOUS CONTINUOUS ALLERGIES: Percocet [Oxycodone-Acetaminophen] PERSONAL HISTORY: Social History Tobacco Use Smoking status: Every Day Current packs/day: 1.00 Average packs/day: 1 pack/day for 15.0 years (15.0 ttl pk-yrs) Types: Cigarettes Smokeless tobacco: Never Vaping Use Vaping status: Never Used Substance Use Topics Alcohol use: Not Currently Comment: hasn't had a drink 7-9 years Drug use: Never FAMILY HISTORY Problem Relation Age of Onset Breast Cancer Mother REVIEW OF SYSTEMS: Denies headaches Denies chest pain Denies shortness of breath PHYSICAL EXAMINATION: General: The patient is 73 year old male, well nourished, well hydrated in no acute distress. The patient is oriented to time, place, and person. VITALS: Blood pressure 198/88, pulse 76, temperature 36.2 C (97.2 F), resp. rate 16, weight 114.7 kg (252 lb 13.9 oz), SpO2 98%. Body mass index is 33.36 kg/m . Head: Normal cephalic, atraumatic Eyes: pupils are equally round, sclera are clear/anicteric Neck is supple with no tracheal deviation Cardiac: normal heart sounds, regular Respiratory: Normal respiratory excursion and pattern. Abdominal exam: benign Extremities: no clubbing, cyanosis or edema. Neuro: non focal Psych: normal mood Assessment IMPRESSION: screening for colon cancer via colonosocpy PLAN: I have discussed the above with the patient. I have offered colonoscopy , possible biopsies I have explained the procedure to the patient. I have counseled the patient as to the risks of the procedure, including but not limited to: infection, bleeding, injury to any intrabdominal organs such as liver/spleen, perforation of the GI tract, inability to complete the procedure, complications of anesthesia, etc. - the patient understands. The patient wishes to proceed. I have answered all questions to the patient s satisfaction and the patient has no further questions. . Rhiannon Pelletier MD HISTORY AND PHYSICAL Manas Hawkins 1950 REFERRING PHYSICIAN: Karie Moraes APRN.* CHIEF COMPLAINT: No chief complaint on file. HPI: The patient is a 73 year old male here for screening for colon cancer via colonosocpy, last colonoscopy > 10 y ago PAST MEDICAL HISTORY Diagnosis Date Cataracts, bilateral Chronic renal disease Diabetes mellitus (HCC) Diverticulitis Erectile dysfunction Essential hypertension History of hernia repair History of partial colectomy Macular degeneration Mixed hyperlipidemia PAST SURGICAL HISTORY Procedure Laterality Date BOWEL RESECTION HX 1995 had colectomy for a while COLONOSCOPY per pt late REMV CATARACT EXTRACAP,INSERT LENS REPAIR EPIGASTRIC HERNIA,REDUC Current Outpatient Medications Medication Sig amLODIPine (NORVASC) 10 mg tablet Take 10 mg by mouth once daily. atorvastatin (LIPITOR) 20 mg tablet Take 20 mg by mouth once daily. Tadalafil (CIALIS) 5 mg tablet Take 5 mg by mouth once daily as needed. fenofibrate (LOFIBRA) 134 mg capsule Take 134 mg by mouth daily with breakfast. metoprolol succinate ER (TOPROL XL) 25 mg 24 hr tablet Take 25 mg by mouth once daily. Valsartan-hydroCHLOROthiazide 320-25 mg per tablet Take 1 tablet by mouth once daily. Blood Pressure Monitor 1 Each once daily. omega-3 DHA-EPA (FISH OIL) 1,200 (144-216) mg capsule Take 1 capsule by mouth daily with breakfast. vit C/E/cuperic/zinc/lutein (PRESERVISION LUTEIN ORAL) Take 1 capsule by mouth once daily. cyanocobalamin (VITAMIN B-12) 1,000 mcg tab Take 1,000 mcg by mouth once daily. Current Facility-Administered Medications Medication Dose Route Frequency lidocaine (PF) 10 mg/mL (1 %) 1-2 mg injection (XYLOCAINE) 0.1-0.2 mL INTRADERMAL PRN lactated ringers iv infusion 75 mL/hr INTRAVENOUS CONTINUOUS ALLERGIES: Percocet [Oxycodone-Acetaminophen] PERSONAL HISTORY: Social History Tobacco Use Smoking status: Every Day Current packs/day: 1.00 Average packs/day: 1 pack/day for 15.0 years (15.0 ttl pk-yrs) Types: Cigarettes Smokeless tobacco: Never Vaping Use Vaping status: Never Used Substance Use Topics Alcohol use: Not Currently Comment: hasn't had a drink 7-9 years Drug use: Never FAMILY HISTORY Problem Relation Age of Onset Breast Cancer Mother REVIEW OF SYSTEMS: Denies headaches Denies chest pain Denies shortness of breath PHYSICAL EXAMINATION: General: The patient is 73 year old male, well nourished, well hydrated in no acute distress. The patient is oriented to time, place, and person. VITALS: Blood pressure 198/88, pulse 76, temperature 36.2 C (97.2 F), resp. rate 16, weight 114.7 kg (252 lb 13.9 oz), SpO2 98%. Body mass index is 33.36 kg/m . Head: Normal cephalic, atraumatic Eyes: pupils are equally round, sclera are clear/anicteric Neck is supple with no tracheal deviation Cardiac: normal heart sounds, regular Respiratory: Normal respiratory excursion and pattern. Abdominal exam: benign Extremities: no clubbing, cyanosis or edema. Neuro: non focal Psych: normal mood Assessment IMPRESSION: screening for colon cancer via colonosocpy PLAN: I have discussed the above with the patient. I have offered colonoscopy , possible biopsies I have explained the procedure to the patient. I have counseled the patient as to the risks of the procedure, including but not limited to: infection, bleeding, injury to any intrabdominal organs such as liver/spleen, perforation of the GI tract, inability to complete the procedure, complications of anesthesia, etc. - the patient understands. The patient wishes to proceed. I have answered all questions to the patient s satisfaction and the patient has no further questions. . Rhiannon Pelletier MD documented in this encounter [facility] 08-25-2023 Instructions Karie Moraes APRN.PRECISION AGRICULTURE SPECIALIST - 08/25/2023 9:01 AM EDT Images from the original note were not included. Bowel Preparation Instructions for: Golytely, Nulytely, Trilyte or Colyte (polyethylene glycol 3350 and electrolytes) IF YOU DO NOT FOLLOW THESE DIRECTIONS, YOUR COLONOSCOPY WILL BE CANCELLED. [place] Instructions: Your bowel must be empty so that your doctor can clearly view your colon. Follow all of the instructions in this handout EXACTLY as they are written. Do NOT eat any solid food the ENTIRE day before your colonoscopy. Drink only clear liquids. Buy your bowel preparation at least 5 days before your colonoscopy. TRANSPORTATION on the Day of Your Exam A responsible person MUST be present with you at Check In prior to your colonoscopy and REMAIN in the endoscopy area until you are discharged. You are NOT ALLOWED to drive, take a taxi or bus, or leave the Endoscopy Center ALONE. If you do not have a responsible garbage truck driver (family member or friend) with you to take you home, your exam cannot be done with sedation and will be cancelled. Please bring a list of all of your current medications, including any Over-the Counter medications with you. Medications If you take insulin, diabetic medications or blood thinners such as Coumadin (warfarin), Plavix (clopidogrel), Ticlid (ticlopidine hydrochloride), Agrylin (anagrelide), Xarelto (Rivaroxaban), Pradaxa (Dabigatran), Eliquis (Apixaban), and Effient (Prasugrel). You MUST call the doctors who orders those medicines for instructions on altering the dosage before your colonoscopy. All other medications should be taken the day of the exam with a sip of water including ASPIRIN. Five (5) Days Before Your Colonoscopy Do NOT take medicines that stop diarrhea - such as Imodium, Kaopectate, or Pepto Bismol. Do NOT take fiber supplements - such as Metamucil, Citrucel, or Perdiem. Do NOT take products that contain iron - such as multi-vitamins (the label lists what is in the products). Do NOT take Vitamin E. Buy the prescription bowel preparation solution at your local pharmacy or drugstore pharmacy. 1 01/2019 Bowel Preparation Instructions for: Golytely, Nulytely, Trilyte or Colyte (polyethylene glycol 3350 and electrolytes) Three (3) Days Before Your Colonoscopy Do NOT eat high-fiber foods - such as popcorn, beans, seeds (flax, sunflower, quinoa), multigrain bread, nuts, salad/vegetables, or fresh and dried fruit. One (1) Day Before Your Colonoscopy Only drink clear liquids the ENTIRE DAY before your colonoscopy. Do NOT eat any solid foods. Drink at least 8 ounces of clear liquids every hour after waking up. The clear liquids you can drink include: Clear Liquid (NO RED LIQUIDS) DO NOT DRINK Gatorade, Pedialyte or Powerade Clear broth or bouillon Coffee or tea (no milk or non-dairy creamer) Carbonated and non-carbonated soft drinks Junacarlos-Aid or other fruit flavored drinks Strained fruit juices (no pulp) Jell-O, popsicles, hard candy Water Alcohol Milk or non-dairy creamers Noodles or vegetables in soup Juice with pulp Liquid you cannot see through Do not use tobacco/vaping products The bowel preparation solution will be consumed in two parts. Mix the solution the evening before your colonoscopy and refrigerate before drinking. You may add the flavor pack that came with the bowel preparation. Do NOT add ice, sugar or any other flavorings to the solution. Part 1 At 6:00 PM - Evening before your colonoscopy Drink an 8-oz glass of bowel preparation every 10 minutes for a total of 8 glasses. You may continue to drink clear liquids until midnight. Part 2 On the day of your colonoscopy you may drink clear liquids up to (three) 3 hours before your procedure. 4 1/2 hours before your colonoscopy Drink an 8-oz glass of bowel preparation every 10 minutes for a total of 8 glasses. Fifteen (15) minutes later, drink an 8-oz glass of clear liquids every 15 minutes for a total of 2 glasses. You may continue to drink clear liquids up to (three) 3 hours before your exam. 2 01/2019 documented in this encounter [facility] 08-23-2023 Telephone encount er Note Faxed [facility] for medical records, faxed confirmed. Promise Castro LPN August 23, 2023 1:54 PM [facility] 08-23-2023 Miscellaneous Notes Formattin g of this note might be different from the original. Faxed [facility] for medical records, faxed confirmed. Promise Castro LPN August 23, 2023 1:54 PM documented in this encounter [facility] 08-23-2023 Nurse Note REVIEW OF SYSTEMS: General: The patient denies fatigue, denies weight loss, denies weight gain, denies feeling hot, and denies feelings of cold. Eyes: The patient denies glaucoma, denies eye injury/surgery, does not wear glasses or contacts. Ear/Nose/Throat: The patient denies allergies, denies hayfever, denies ear infections, and denies bloody noses. Cardiovascular: The patient denies chest pain, denies heart disease, NOTES high blood pressure,denies cardiac stent, denies prior heart attack, denies irregular heart beat, NOTES high cholesterol, denies poor circulation, denies heart failure, other cardiac issues, denies claudication, denies cold feet, denies peripheral arterial stent. Respiratory: The patient denies tuberculosis, denies pneumonia, denies frequent cough, denies pulmonary embolism, denies shortness of breath, and denies coughing up blood. Gastrointestinal: The patient denies difficulty swallowing, denies acid reflux, denies ulcers, denies vomiting, denies jaundice/hepatitis, denies gallbladder problems, denies black or tarry stools, denies hemorrhoids, denies bleeding from rectum, NOTES diverticulitis, denies constipation, denies diarrhea, denies loss of stool control, and NOTES hernias. Kidney/Bladder: The patient denies kidney stones, denies urine infections, and denies bloody urine. Skin: The patient denies a history of skin cancer, denies bleeding/changing moles, and denies a history of skin rash. Neurologic: The patient denies a history of epilepsy/convulsions, denies headaches, denies head/spinal injuries, and denies stroke/TIA. Psychiatric: The patient denies psychiatric medications, denies depression, and denies voices, denies substance abuse. Endocrine: The patient denies thyroid disorders, denies diabetes, and denies hormonal problems. Hematologic: The patient denies a history of bruising, denies bleeding, and denies anemia, denies blood clots. Infections: The patient denies a history of measles and mumps, denies rheumatic fever, and denies sexually transmitted diseases. Musculoskeletal: The patient denies back pain/injury, denies back problems, denies sciatica, denies knee/foot trouble, denies arthritis, or denies gout. When was patient's last Mammogram screening? N/A Last Colonoscopy: 1989? Promise Castro LPN [facility] 08-23-2023 Nurse Note REVIEW OF SYSTEMS: General: The patient denies fatigue, denies weight loss, denies weight gain, denies feeling hot, and denies feelings of cold. Eyes: The patient denies glaucoma, denies eye injury/surgery, does not wear glasses or contacts. Ear/Nose/Throat: The patient denies allergies, denies hayfever, denies ear infections, and denies bloody noses. Cardiovascular: The patient denies chest pain, denies heart disease, NOTES high blood pressure,denies cardiac stent, denies prior heart attack, denies irregular heart beat, NOTES high cholesterol, denies poor circulation, denies heart failure, other cardiac issues, denies claudication, denies cold feet, denies peripheral arterial stent. Respiratory: The patient denies tuberculosis, denies pneumonia, denies frequent cough, denies pulmonary embolism, denies shortness of breath, and denies coughing up blood. Gastrointestinal: The patient denies difficulty swallowing, denies acid reflux, denies ulcers, denies vomiting, denies jaundice/hepatitis, denies gallbladder problems, denies black or tarry stools, denies hemorrhoids, denies bleeding from rectum, NOTES diverticulitis, denies constipation, denies diarrhea, denies loss of stool control, and NOTES hernias. Kidney/Bladder: The patient denies kidney stones, denies urine infections, and denies bloody urine. Skin: The patient denies a history of skin cancer, denies bleeding/changing moles, and denies a history of skin rash. Neurologic: The patient denies a history of epilepsy/convulsions, denies headaches, denies head/spinal injuries, and denies stroke/TIA. Psychiatric: The patient denies psychiatric medications, denies depression, and denies voices, denies substance abuse. Endocrine: The patient denies thyroid disorders, denies diabetes, and denies hormonal problems. Hematologic: The patient denies a history of bruising, denies bleeding, and denies anemia, denies blood clots. Infections: The patient denies a history of measles and mumps, denies rheumatic fever, and denies sexually transmitted diseases. Musculoskeletal: The patient denies back pain/injury, denies back problems, denies sciatica, denies knee/foot trouble, denies arthritis, or denies gout. When was patient's last Mammogram screening? N/A Last Colonoscopy: 1989? Promise Castro LPN documented in this encounter [facility] 08-23-2023 Note HNO ID: [id number] Author: KARIE MORAES APRN.PRECISION AGRICULTURE SPECIALIST Service: ? Author Type: Nurse Practitioner Type: Progress Notes Filed: 08/25/2023 09:03 Note Text: HISTORY AND PHYSICAL Manas Hawkins : 1950 REFERRING PHYSICIAN: No referring provider defined for this encounter. CHIEF COMPLAINT: Patient presents with: Consult: Screening for colon cancer HPI: Manas is a 73 year old male referred for endoscopy. Manas notes due for screening colonoscopy. Patient denies any change in bowel habits, weight changes, blood in stools, black tarry stools or abdominal pain. Denies family history of colon issues. Manas notes no upper GI complaints. Manas has not undergone prior endoscopy. He refers he did a barium enema in the . He also has history of a colectomy with colostomy and reversal d/t diverticulitis in the late . There is a date on external records of colonoscopy in 1996 but no further information. Manas was unable to confirm his medical history and medications. He states he has a hx of HTN and high cholesterol. Records received from PCP include hx of CKD stage 3 and diabetes Last GFR on 06/06/24 was 32 and creatinine was 2.17 No current outpatient medications on file. No current facility-administered medications for this visit. ALLERGIES: Percocet [Oxycodone-Acetaminophen] PAST MEDICAL HISTORY Diagnosis Date Diverticulitis Essential hypertension History of hernia repair Macular degeneration Mixed hyperlipidemia PAST SURGICAL HISTORY Procedure Laterality Date BOWEL RESECTION HX 1995 had colectomy for a while COLONOSCOPY per pt late REPAIR EPIGASTRIC HERNIA,REDUC FAMILY HISTORY Problem Relation Age of Onset Breast Cancer Mother Social History Tobacco Use Smoking status: Every Day Types: Cigarettes Smokeless tobacco: Never Vaping Use Vaping Use: Never used Substance Use Topics Alcohol use: Not Currently Comment: hasn't had a drink 7-9 years Drug use: Never REVIEW OF SYMPTOMS: REVIEW OF SYSTEMS: General: The patient denies fatigue, denies weight loss, denies weight gain, denies feeling hot, and feelings of cold. Eyes: The patient denies glaucoma, + eye injury/surgery-cataracts, denies glasses or contacts. Cardiovascular: The patient denies chest pain, denies heart disease, + high blood pressure, + high cholesterol, and denies poor circulation. Respiratory: The patient denies tuberculosis, denies pneumonia, denies frequent cough, denies shortness of breath, and denies coughing up blood. Gastrointestinal: The patient denies difficulty swallowing, denies acid reflux, denies ulcers, denies jaundice/hepatitis, denies gallbladder problems, denies vomiting, denies black or tarry stools, denies hemorrhoids, denies bleeding from rectum, denies diverticulitis, denies constipation, denies diarrhea, denies loss of stool control, and + hernia umbilical repair. Neurologic: The patient denies a history of epilepsy/convulsions, denies headaches, denies head/spinal injuries, and denies stroke/TIA. Endocrine: The patient denies thyroid disorders, denies diabetes, and denies hormonal problems. Hematologic: The patient denies a history of bruising, denies bleeding, and denies anemia. Infections: The patient denies a history of measles and mumps, denies rheumatic fever, and denies sexually transmitted diseases. PHYSICAL EXAMINATION: General: The patient is 73 year old, male well nourished, well hydrated in no acute distress. The patient is oriented to time, place, and person. VITALS: Blood pressure 142/78, pulse 85, temperature 36.4 ?C (97.5 ?F), height 185.4 cm (6' 1), weight 114.7 kg (252 lb 12.8 oz), SpO2 100%. Body mass index is 33.35 kg/m?. HEENT: Normal cephalic, ataumatic, pupils are equally round, sclera are anicteric, mucous membranes are moist, oropharynx is clear. Neck has no masses, asymmetry or lymphadenopathy. Respiratory: Clear to auscultation and percussion. Normal respiratory excursion and pattern. Cardiac: Examination is regular rate and rhythm. Normal S1/S2 Abdominal exam: Soft, nontender, with no palpable masses. No hepatosplenomegaly. No palpable hernias. Extremities: no clubbing, cyanosis or edema. No adenopathy. LABORATORY VALUES: As Noted RADIOLOGIC STUDIES: As Noted Assessment IMPRESSION: screen for colon cancer PLAN: I have reviewed my findings with the surgeon. Will plan for lower endoscopy. We discussed the risks and benefits of the planned endoscopy. I have informed the patient that complications can occur including failure to complete the endoscopy and perforation. Manas had the opportunity to ask questions concerning the planned endoscopy. My staff has also explained the procedure to the patient in understandable terms and has given the patient printed material concerning the procedure. Manas freely consents to surgery. I plan to use [employer] bowel pre (more content not included)... [facility] 08-23-2023 History of Presen t illness Narrative HISTORY AND PHYSICAL Manas Hawkins : 1950 REFERRING PHYSICIAN: No referring provider defined for this encounter. CHIEF COMPLAINT: Patient presents with: Consult: Screening for colon cancer HPI: Manas is a 73 year old male referred for endoscopy. Manas notes due for screening colonoscopy. Patient denies any change in bowel habits, weight changes, blood in stools, black tarry stools or abdominal pain. Denies family history of colon issues. Manas notes no upper GI complaints. Manas has not undergone prior endoscopy. He refers he did a barium enema in the . He also has history of a colectomy with colostomy and reversal d/t diverticulitis in the late . There is a date on external records of colonoscopy in 1996 but no further information. Manas was unable to confirm his medical history and medications. He states he has a hx of HTN and high cholesterol. Records received from PCP include hx of CKD stage 3 and diabetes Last GFR on 08/05/23 was 32 and creatinine was 2.17 No current outpatient medications on file. No current facility-administered medications for this visit. ALLERGIES: Percocet [Oxycodone-Acetaminophen] PAST MEDICAL HISTORY Diagnosis Date Diverticulitis Essential hypertension History of hernia repair Macular degeneration Mixed hyperlipidemia PAST SURGICAL HISTORY Procedure Laterality Date BOWEL RESECTION HX 1995 had colectomy for a while COLONOSCOPY per pt late REPAIR EPIGASTRIC HERNIA,REDUC FAMILY HISTORY Problem Relation Age of Onset Breast Cancer Mother Social History Tobacco Use Smoking status: Every Day Types: Cigarettes Smokeless tobacco: Never Vaping Use Vaping Use: Never used Substance Use Topics Alcohol use: Not Currently Comment: hasn't had a drink 7-9 years Drug use: Never REVIEW OF SYMPTOMS: REVIEW OF SYSTEMS: General: The patient denies fatigue, denies weight loss, denies weight gain, denies feeling hot, and feelings of cold. Eyes: The patient denies glaucoma, + eye injury/surgery-cataracts, denies glasses or contacts. Cardiovascular: The patient denies chest pain, denies heart disease, + high blood pressure, + high cholesterol, and denies poor circulation. Respiratory: The patient denies tuberculosis, denies pneumonia, denies frequent cough, denies shortness of breath, and denies coughing up blood. Gastrointestinal: The patient denies difficulty swallowing, denies acid reflux, denies ulcers, denies jaundice/hepatitis, denies gallbladder problems, denies vomiting, denies black or tarry stools, denies hemorrhoids, denies bleeding from rectum, denies diverticulitis, denies constipation, denies diarrhea, denies loss of stool control, and + hernia umbilical repair. Neurologic: The patient denies a history of epilepsy/convulsions, denies headaches, denies head/spinal injuries, and denies stroke/TIA. Endocrine: The patient denies thyroid disorders, denies diabetes, and denies hormonal problems. Hematologic: The patient denies a history of bruising, denies bleeding, and denies anemia. Infections: The patient denies a history of measles and mumps, denies rheumatic fever, and denies sexually transmitted diseases. PHYSICAL EXAMINATION: General: The patient is 73 year old, male well nourished, well hydrated in no acute distress. The patient is oriented to time, place, and person. VITALS: Blood pressure 142/78, pulse 85, temperature 36.4 C (97.5 F), height 185.4 cm (6' 1), weight 114.7 kg (252 lb 12.8 oz), SpO2 100%. Body mass index is 33.35 kg/m . HEENT: Normal cephalic, ataumatic, pupils are equally round, sclera are anicteric, mucous membranes are moist, oropharynx is clear. Neck has no masses, asymmetry or lymphadenopathy. Respiratory: Clear to auscultation and percussion. Normal respiratory excursion and pattern. Cardiac: Examination is regular rate and rhythm. Normal S1/S2 Abdominal exam: Soft, nontender, with no palpable masses. No hepatosplenomegaly. No palpable hernias. Extremities: no clubbing, cyanosis or edema. No adenopathy. LABORATORY VALUES: As Noted RADIOLOGIC STUDIES: As Noted Assessment IMPRESSION: screen for colon cancer PLAN: I have reviewed my findings with the surgeon. Will plan for lower endoscopy. We discussed the risks and benefits of the planned endoscopy. I have informed the patient that complications can occur including failure to complete the endoscopy and perforation. Manas had the opportunity to ask questions concerning the planned endoscopy. My staff has also explained the procedure to the patient in understandable terms and has given the patient printed material concerning the procedure. Manas freely consents to surgery. I plan to use [employer] bowel preparation I have explained to the patient the difference between IV conscious sedation and MAC anesthesia - and I have offered either, according to the patient's wishes. I have explained that with IV conscious sedation there is no anesthesia provider available and therefore there is a limitation of the amount of IV medications that can be given and that the patient may wake up in the middle of the procedure and/or experience pain/discomfort during the procedure. Further discussion was done and the patient was given the opportunity to ask questions and all questions were answered. Manas chooses IV conscious sedation Manas was counseled that if there are changes in his/her medical condition, to let the office know if surgery should proceed. If there are changes in patient's medical condition from time of this encounter to the day of the procedure that preclude anesthesia, patient may have procedure cancelled for patient's safety. Diagnoses: (Z12.11) Screen for colon cancer (primary encounter diagnosis) Portions of this documentation were copied and pasted from previous office visit notes in order to provide a cohesive continuity of the history. The note has been reviewed and edited and updated as necessary. Karie Moraes APRN.HERNESTO documented in this encounter [facility] Evaluation note Diagnosis Screen for colon cancer Special screening for malignant neoplasms, colon [facility] Screen for colon cancer Special screening for malignant neoplasms, colon [facility] Diagnosis Sessile serrated polyp of colon- Primary documented in this encounter [facility] for referral (narrative)* Outpatient Procedure (Routine) - Authorized Specialty Diagnoses / Procedures Referred By Basia levine Referred To Contact [facility] Diagnoses Screen for colon cancer Procedures COLONOSCOPY SCREENING COLONOSCOPY FLX DX W/COLLJ SPEC WHEN Karie Mobley APRN.PRECISION AGRICULTURE SPECIALIST [address] [place] [address] [facility] [id number] [place] [address] Referral ID Status Reason Start Date Expiration Date Visits Requested Visits Authorized [id number] Authorized Auto-Generat ed Referral 08/25/2023 08/24/2024 1 1 [facility] for referral (narrative)* Outpatient Procedure (Routine) - Closed Specialty Diagnoses / Procedures Referred By Contnancy levine Referred To Contact [facility] Diagnoses Screen for colon cancer Procedures COLONOSCOPY SCREENING COLONOSCOPY FLX DX W/COLLJ SPEC WHEN Karie Mobley APRN.CNP [address] [place] [address] [facility] [address] [place] [address] Referral ID Status Reason Start Date Expiration Date V isits Requested Visits Authorized [id number] Closed Auto-Generate d Referral 08/25/2023 08/24/2024 1 [facility]patient Procedure (Routine) - Closed Specialty Diagnoses / Procedures Referred By Basia t Referred To Contact [facility] Diagnoses Screen for colon cancer Procedures COLONOSCOPY SCREENING COLONOSCOPY FLX DX W/COLLJ SPEC WHEN Karie Mobley APRN.CNP [address] [place] [address] [facility] [address] [place] [address] Referral ID Status Reason Start Date Expiration Date V isits Requested Visits Authorized [id number] Closed Auto-Generate d Referral 08/25/2023 08/24/2024 1 1 [facility] Summary Purpose Family History No Family History Records FoundNo Family History Records Found Advance Directives No Advanced Directives Records FoundNo Advanced Directives Records Found Additional Source Comments Source Comments (unrecognize d section and content) In the event this informatio n is protected by the Federal Confidentiality of Alcohol and Drug Abuse Patient Records regulations: The Federal rules restrict any use of the information to criminally investigate or prosecute any alcohol or drug abuse patient.[facility] event this information is protected by the Federal Confidentiality of Alcohol and Drug Abuse Patient Records regulations: The Federal rules restrict any use of the information to criminally investigate or prosecute any alcohol or drug abuse patient.[facility] the event this information is protected by the Federal Confidentiality of Alcohol and Drug Abuse Patient Records regulations: The Federal rules restrict any use of the information to criminally investigate or prosecute any alcohol or drug abuse patient.[facility] Reason for Visit (unrecogniz ed section and content) Reason Comments Consult Screening for colon cancer Reason Comments post colonoscopy check (unrecognized sect ion and content) No Status Records FoundNo Status Records Found INFORMATION SOURCE (unrecogn ized section and content) DATE CREATED AUTHOR 10/25/2023 [facility] DATE CREATED AUTHOR AUTHOR'S ORGANIZ ATION 12/17/2023 [facility] Care Teams (unrecognized sec tion and content) Business Systems Advisor Relationship Specialty Start Date End Date Babita Arndt MD Primary Staff Physician 12/15/23 FOR RECORDS PERTAINING TO PATIENTS WHO ARE OR HAVE BEEN ENROLLED IN A CHEMICAL DEPENDENCY/SUBSTANCEABUSE PROGRAM, SOME INFORMATION MAY BE OMITTED. This clinical summary was aggregated from multiple sources. Caution should be exercised in using it in the provision of clinical care. This summary normalizes information from multiple sources, and as a consequence, information in this document may materially change the coding, format and clinical context of patient data. In addition, data may be omitted in some cases. CLINICAL DECISIONS SHOULD BE BASED ON THE PRIMARY CLINICAL RECORDS. [employer] [facility]. provides no warranty or guarantee of the accuracy or completeness of information in this document.
[2024-08-29 11:09] LABS: AST(SGOT) 21 U/L (<=37); Alanine Aminotransfer ALT/SGPT 19 U/L (<=46); Albumin, Serum 4.2 g/dL (3.4-4.8); Alkaline Phosphatase 67 U/L (40-129); Anion Gap 11 (5-15); BUN 48 mg/dL (4-19); BUN/Creat Ratio 30.6 RATIO (10-20); Calcium,Total 9.3 mg/dL (7.6-11.0); Carbon Dioxide 23.4 mmol/L (21.0-32.0); Chloride 105 mmol/L (98-108); Cholesterol 118 mg/dL (<=200); Creatinine, Urine (random) 106.00 mg/dL (39.00-259.00); Globulin 3.3 g/dL (2.2-4.2); Glucose 113 mg/dL (70-99); Low Density Lipoprotein Calc. 70 mg/dL; Potassium 5.0 mmol/L (3.3-5.1); Protein, Urine (Random) 11.5 mg/dL (0.0-12.0); Protein:Creat Ratio 108 mg/g CRE (0-200); Triglycerides 102 mg/dL; Very Low Density Lipoprotein 20 mg/dL (5-40); cholesterol:hdl ratio screen 4.28
[2024-08-29 11:13] LABS: Hematocrit 46.9 % (40-54); Hemoglobin 15.3 g/dL (13.0-16.5); Immature Granulocytes Count 0.030 X10^3/uL (0.0-0.0); Mean Corp Hgb Conc 32.6 g/dL (32-36); Mean Corpuscular Volume 98.3 fL (80-94); Mean Platelet Vol. 10.3 fl (6.2-12.0); NRBC Flagged by Analyzer 0 % (0-5); Platelet Count 242 K/mm3 (150-450); RBC Distribution Width CV 13.5 % (11.6-14.6); RBC Distribution Width SD 48.9 fl (35.1-43.9); Red Blood Count 4.77 M/mm3 (4.6-6.2); White Blood Count 7.3 K/mm3 (4.4-11.0)
== END | disposition home or self-care (01) ==
LOC: MTLAB 08:24
PROVIDERS: PCP Family Medicine; Referring Provider Family Medicine; Visit Provider Family Medicine
DX: Z00.00 Encounter for general adult medical examination without abnormal findings (principal); E11.22 Type 2 diabetes mellitus with diabetic chronic kidney disease; N18.30 Chronic kidney disease, stage 3 unspecified; I12.9 Hypertensive chronic kidney disease with stage 1 through stage 4 chronic kidney disease, or unspecified chronic kidney disease; E78.5 Hyperlipidemia, unspecified
CPT/HCPCS: 36415; 80053; 80061; 82570; 84156; 85025